=== PATIENT | male | born 1930 | race African-American/Black ===

== ENCOUNTER 2018-02-24 17:08 | Observation (INO) | payer OTHER ==
[2018-02-24 17:37] LABS: Absolute Lymphocytes (CBC) 0.7 K/uL (0.7-4.9); Absolute Monocytes 0.6 K/uL (0.1-1.3); Absolute Neutrophil 13.5 K/uL (1.8-8.0); Basophils % 0.5 % (0-1.3); Eosinophils % 0.1 % (0-4.4); Hematocrit 43.4 % (39.6-49.0); Lymphocytes % 4.9 % (15.3-44.8); MCH 32.1 pg (27.0-35.0); MCV 99.2 fL (80-100); MPV 8.4 fL (7.6-11.3); Monocytes % 4.3 % (3.3-12.3); RBC Red Blood Cell Count 4.37 M/uL (4.33-5.43)
[2018-02-24] MEDS ORDERED: ONDANSETRON 4 MG/2 ML VIAL ONE (17:45)
[2018-02-24 17:47] LABS: Glomerular Filtration Rate > 60 mL/min (>60); Potassium 5.3 mEq/L (3.6-5.0)
[2018-02-24 17:53] LABS: Albumin 3.8 g/dL (3.2-5.5); Bilirubin Direct 0.3 mg/dL (0-0.2); Bilirubin Total 1.4 mg/dL (0.3-1.2); Protein, Total 6.4 g/dL (6.0-8.3)
--- NOTE | 2018-02-24 18:15 | EDPHYS ---
Physician Documentation [facility] Name: Mahendra St Sr Age: 87 yrs Sex: Male : 1930 Arrival Date: 02/24/2018 Time: 17:13 Bed 14 Private MD: ED Physician Dionicio Brink HPI: 02/24 17:27 This 87 yrs old Black Male presents to ER via EMS with complaints of tw4 Nausea/Vomiting/Diarrhea. 17:27 The patient presents to the emergency department with nausea, that is moderate, tw4 vomiting, 7 times since the onset of symptoms, 8 times since yesterday, diarrhea, that is continuous, 5 times since yesterday. Onset: The symptoms/episode began/occurred yesterday. Possible causes: unknown. The symptoms are aggravated by nothing. The symptoms are alleviated by nothing. Associated signs and symptoms: The patient has no apparent associated signs or symptoms. Severity of symptoms: At their worst the symptoms were moderate in the emergency department the symptoms are unchanged. The patient has not experienced similar symptoms in the past. 17:27 Unable to obtain HPI due to baseline dementia. tw4 Historical: - Allergies: 17:20 NKA; iw - Home Meds: 17:20 carvedilol 6.25 mg Oral tab 1 tab 2 times per day [Active]; hydralazine 100 mg Oral tab iw 1 tab 2 times per day [Active]; metformin 750 mg Oral Tb24 1 tab BID [Active]; labetalol 100 mg Oral tab 1 tab 2 times per day [Active]; Klor-Con 10 10 mEq Oral TbER 1 tab 2 times per day [Active]; spironolactone 50 mg Oral tab 1 tab once daily [Active]; hydrochlorothiazide 25 mg Oral tab 1 tab 2 times per day [Active]; - PMHx: 17:20 Diabetes - NIDDM; Hypertension; iw - PSHx: 17:20 None; iw - Immunization history:: Adult Immunizations up to date. - Social history:: Smoking status: Patient/guardian denies using tobacco. ROS: 17:27 Constitutional: Negative for fever, chills, and weight loss, Cardiovascular: Negative tw4 for chest pain, palpitations, and edema, Abdomen/GI: Negative for abdominal pain, nausea, vomiting, diarrhea, and constipation, MS/Extremity: Negative for injury and deformity, Skin: Negative for injury, rash, and discoloration, Neuro: Negative for headache, weakness, numbness, tingling, and seizure. 17:27 Abdomen/GI: Positive for nausea, vomiting, diarrhea, Negative for abdominal pain, nausea and vomiting, nausea, vomiting, and diarrhea, black/tarry stool, rectal pain, rectal bleeding, bowel incontinence. Exam: 17:27 Constitutional: This is a well developed, well nourished patient who is awake, alert, tw4 and in no acute distress. Head/Face: Normocephalic, atraumatic. Chest/axilla: Normal chest wall appearance and motion. Nontender with no deformity. No lesions are appreciated. Cardiovascular: Regular rate and rhythm with a normal S1 and S2. No gallops, murmurs, or rubs. Normal PMI, no JVD. No pulse deficits. Respiratory: Lungs have equal breath sounds bilaterally, clear to auscultation and percussion. No rales, rhonchi or wheezes noted. No increased work of breathing, no retractions or nasal flaring. Back: No spinal tenderness. No costovertebral tenderness. Full range of motion. MS/ Extremity: Pulses equal, no cyanosis. Neurovascular intact. Full, normal range of motion. Neuro: Awake and alert, GCS 15, oriented to person, place, time, and situation. Cranial nerves II-XII grossly intact. Motor strength 5/5 in all extremities. Sensory grossly intact. Cerebellar exam normal. Normal gait. Vital Signs: 18:02 BP 188 / 94; Pulse 72; Resp 18 S; Temp 97.8(TE); Pulse Ox 94% on R/A; Weight 83.91 kg; iw Height 5 ft. 10 in. (177.80 cm); Pain 0/10; 19:26 BP 155 / 89; Pulse 82; Resp 14; Pulse Ox 93% on 2 lpm NC; Pain 0/10; ao 19:58 BP 176 / 91; Pulse 83; Resp 14; Pulse Ox 96% on 2 lpm NC; mt 20:46 BP 128 / 92; Pulse 58; Resp 16; Pulse Ox 94% on 2 lpm NC; Pain 0/10; ao 18:02 Body Mass Index 26.54 (83.91 kg, 177.80 cm) iw MDM: 17:14 Patient medically screened. tw4 17:27 Differential diagnosis: Nonspecific abd pain, gastritis, cholecystitis, pancreatitis. tw4 Data reviewed: vital signs, nurses notes. Data interpreted: Pulse oximetry: Interpretation: normal. Counseling: I had a detailed discussion with the patient and/or guardian regarding: the historical points, exam findings, and any diagnostic results supporting the discharge/admit diagnosis. 02/24 17:20 Order name: Amylase, Serum; Complete Time: 18:13 tw4 02/24 17:20 Order name: Basic Metabolic Panel; Complete Time: 18:13 tw4 02/24 17:20 Order name: CBC with Diff; Complete Time: 18:56 tw4 02/24 17:20 Order name: Creatinine for Radiology; Complete Time: 18:13 tw4 02/24 17:20 Order name: Hepatic Function; Complete Time: 18:13 tw4 02/24 17:20 Order name: Lipase; Complete Time: 18:13 tw4 02/24 17:20 Order name: Urine Microscopic Only tw4 02/24 18:21 Order name: Basic Metabolic Panel EDMS 02/24 18:21 Order name: Basic Metabolic Panel EDMS 02/24 18:21 Order name: CBC with Automated Diff EDMS 02/24 18:21 Order name: CBC with Automated Diff EDMS 02/24 18:21 Order name: Lipase EDMS 02/24 18:21 Order name: Lipase EDMS 02/24 18:49 Order name: Manual Differential; Complete Time: 18:56 EDMS 02/24 17:20 Order name: IV Saline Lock; Complete Time: 17:30 tw4 02/24 17:20 Order name: Labs collected and sent; Complete Time: 17:30 tw4 02/24 17:20 Order name: EKG; Complete Time: 17:20 tw4 02/24 17:20 Order name: Abdomen 1 View XRAY tw4 02/24 18:21 Order name: NPO EDMS 02/24 18:45 Order name: RAD; Complete Time: 18:56 EDMS 02/24 18:57 Order name: CT Abd/Pelvis - W/Contrast tw4 02/24 19:59 Order name: CT EDMS Administered Medications: 17:25 Drug: Zofran 4 mg Route: IVP; Site: right antecubital; iw 18:58 Follow up: Response: No adverse reaction iw 19:25 Drug: Phenergan 12.5 mg Route: IVP; Site: right antecubital; ao 20:21 Follow up: Response: No adverse reaction ao 20:45 Drug: hydrALAZINE 10 mg Route: IV; Rate: calculated rate; Site: right antecubital; ao 20:47 Follow up: IV Status: Infusion continued upon admission ao Disposition: 02/24/18 18:15 Hospitalization ordered by Dano Bella for Inpatient Admission. Preliminary diagnosis are Dehydration, Vomiting, Diarrhea, unspecified. - Bed requested for Telemetry/MedSurg (Inpatient). - Status is Inpatient Admission. ao - Condition is Fair. - Problem is new. - Symptoms are unchanged. UTI on Admission? No Signatures: Dispatcher [employer] Ita Humphries RN RN dw Williams, Irene, RN RN iw Ortiz, Alex, RN RN ao Wadley, Terrence, MD MD tw4 Corrections: (The following items were deleted from the chart) 20:47 17:20 Urine Dipstick-Ancillary ordered. tw4 ao
--- NOTE | 2018-02-24 18:15 | ER ---
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 Transition of care: patient was not received from another setting of care. Onset of symptoms was February 24, 2018. Care prior to arrival: Medication(s) given: zofran 4 mg, IV initiated. 20 GA, in the right antecubital area, Glucose check: 226. 17:14 Method Of Arrival: EMS: [facility] iw 17:14 Acuity: JACLYN 3 iw Historical: - Allergies: 17:20 NKA; iw - Home Meds: 17:20 carvedilol 6.25 mg Oral tab 1 tab 2 times per day [Active]; hydralazine 100 mg Oral tab iw 1 tab 2 times per day [Active]; metformin 750 mg Oral Tb24 1 tab BID [Active]; labetalol 100 mg Oral tab 1 tab 2 times per day [Active]; Klor-Con 10 10 mEq Oral TbER 1 tab 2 times per day [Active]; spironolactone 50 mg Oral tab 1 tab once daily [Active]; hydrochlorothiazide 25 mg Oral tab 1 tab 2 times per day [Active]; - PMHx: 17:20 Diabetes - NIDDM; Hypertension; iw - PSHx: 17:20 None; iw - Immunization history:: Adult Immunizations up to date. - Social history:: Smoking status: Patient/guardian denies using tobacco. Screenin:30 Abuse screen: Denies threats or abuse. Denies injuries from another. Nutritional iw screening: No deficits noted. Tuberculosis screening: No symptoms or risk factors identified. Fall Risk IV access (20 points). Assessment: 17:15 General: Appears in no apparent distress. Behavior is calm, cooperative. Pain: iw Complains of pain in back. Neuro: Level of Consciousness is awake, alert, obeys commands, Weakness in left arm(s) leg(s). Respiratory: Respiratory effort is even, unlabored. GI: Abdomen is non-distended, Bowel sounds present X 4 quads. Reports nausea, vomiting. GI: Reports diarrhea. Derm: Skin is normal. Musculoskeletal: Range of motion: limited in left elbow and left knee. 18:03 Reassessment: Patient appears in no apparent distress at this time. pt daughter states iw he has not had any more episodes of vomiting since he first arrived. 18:30 Reassessment: pt had large loose BM, pt cleaned by family, linens changed, pt then iw transported to radiology for Xray. 18:59 Reassessment: pt had another episode of vomiting, ERP notified, new orders given, pt iw will have CT. 19:26 General: Appears in no apparent distress. comfortable, Behavior is listless. Pain: ao Unable to use pain scale. FLACC scale score is 0 out of 10. Neuro: Level of Consciousness is awake, alert, obeys commands, Weakness. Cardiovascular: Capillary refill < 3 seconds Patient's skin is warm and dry. Respiratory: Airway is patent Respiratory effort is even, unlabored, Respiratory pattern is regular, symmetrical. GI: Abdomen is non-distended. : No signs and/or symptoms were reported regarding the genitourinary system. EENT: No signs and/or symptoms were reported regarding the EENT system. Derm: Skin is normal, Skin temperature is warm. Musculoskeletal: Range of motion: limited in left side. 19:29 Reassessment: Patient O2 in the 80st. Patient given O2 NC per hospital protocol. ao 20:48 Reassessment: Called report to RENU Bauer. Patient waiting to get to his room. Patient ao medicated wity Hydralazine 10mg IVP as requested by Primary nurse and ordered by DR Brink verbally to me. Vital Signs: 18:02 BP 188 / 94; Pulse 72; Resp 18 S; Temp 97.8(TE); Pulse Ox 94% on R/A; Weight 83.91 kg; iw Height 5 ft. 10 in. (177.80 cm); Pain 0/10; 19:26 BP 155 / 89; Pulse 82; Resp 14; Pulse Ox 93% on 2 lpm NC; Pain 0/10; ao 19:58 BP 176 / 91; Pulse 83; Resp 14; Pulse Ox 96% on 2 lpm NC; mt 20:46 BP 128 / 92; Pulse 58; Resp 16; Pulse Ox 94% on 2 lpm NC; Pain 0/10; ao 18:02 Body Mass Index 26.54 (83.91 kg, 177.80 cm) iw ED Course: 17:00 Arm band placed on right wrist. iw 17:13 Patient arrived in ED. iw 17:14 Dionicio Brink MD is Attending Physician. tw4 17:15 Triage completed. iw 17:15 Patient has correct armband on for positive identification. iw 17:30 Initial lab(s) drawn, by me, sent to lab. Maintain EMS IV. Dressing intact. Good blood iw return noted. Site clean \T\ dry. Gauge \T\ site: 20 RAC. 17:37 Faviola Oliveira, RN is Primary Nurse. iw 17:53 EKG done, by home service technician. reviewed by Dionicio Brink MD. at1 18:14 Dano Bella MD is Hospitalizing Provider. tw4 18:37 X-ray completed. Patient tolerated procedure well. kc2 19:00 No provider procedures requiring assistance completed. Patient admitted, IV remains in iw place. 19:09 Radiology exam delayed due to Pt getting cleaned up at this time. vm2 19:14 Warm blanket given. Pillow given. has had four diarreah stools changed bed 4 x and has mh5 vomit once . Administered Medications: 17:25 Drug: Zofran 4 mg Route: IVP; Site: right antecubital; iw 18:58 Follow up: Response: No adverse reaction iw 19:25 Drug: Phenergan 12.5 mg Route: IVP; Site: right antecubital; ao 20:21 Follow up: Response: No adverse reaction ao 20:45 Drug: hydrALAZINE 10 mg Route: IV; Rate: calculated rate; Site: right antecubital; ao 20:47 Follow up: IV Status: Infusion continued upon admission ao Outcome: 18:15 Decision to Hospitalize by Provider. tw4 20:45 Admitted to Tele accompanied by tech, room 411, Report called to RENU Bauer ao 20:45 Condition: stable 20:45 Instructed on the need for admit. 21:31 Patient left the ED. ao Signatures: Faviola Oliveira, RENU RN iw Amanda murphy, vegetable preparer EKG Tat1 Portillo Aviles Florencia Sequeira RN 2 Peri Stevens 5 Dayan Devi 2 Shawanda Corral mt, Terrence, MD MD tw4 Corrections: (The following items were deleted from the chart) 19:06 18:02 BP 188 / 94; Pulse 72bpm; Resp 18bpm; Spontaneous; Temp 97.8F Temporal; 83.91 kg; iw Height 5 ft. 10 in.; BMI: 26.5; Pain 0/10; iw
[2018-02-24] MEDS ORDERED: ACETAMINOPHEN 500 MG TAB PO PRN (18:17)
--- NOTE | 2018-02-24 18:44 | RAD REPORT ---
EXAM DESCRIPTION: RAD - Abdomen Single View - 02/24/2018 6:37 pm CLINICAL HISTORY: Nausea and vomiting. COMPARISON: None. FINDINGS: No pathologic calcifications are seen. The bones are osteopenic with degenerative changes in the lumbar spine. Several distended bowel loops are present in the left aspect of the abdomen. A paucity of bowel gas i s seen on the right. Developing bowel obstruction is a possibility, advise CT abdomen / pelvis follow up assessment.
[2018-02-24 18:49] LABS: Blood Morphology Comment NOT SEEN (NOT SEEN); Platelet Estimate ADEQ
[2018-02-24] MEDS: D5 0.45 NS 1,000 ML IV SCH ×2 (19:00→22:13)
[2018-02-24] MEDS ORDERED: PROMETHAZINE 25 MG/ML VIAL ONE (19:35)
--- NOTE | 2018-02-24 19:58 | RAD REPORT ---
EXAM DESCRIPTION: CTAbdomen Pelvis W Contrast - 02/24/2018 7:49 pm CLINICAL HISTORY: Abdominal pain. Nausea and vomiting. COMPARISON: Plain radiograph 02/24/2018 TECHNIQUE: Biphasic CT imaging of the abdomen and pelvis was performed with 100 ml non-ionic IV cont rast. All CT scans are performed using dose optimization technique as appropriate and may include automated exposure control or mA/KV adjustment according to patient size. FINDINGS: Mild linear opacities are present in both lung bases, greater on the right. The liver contains several low-density lesions, likely benign cysts. No intrahepatic biliary dilatati on. The spleen, pancreas and adrenal glands are normal. Multiple bilateral renal cysts are present, l argest inferiorly emanating from the right kidney measuring 10 cm. Significantly thickened colon wall is seen predominately in the left aspect of the abdomen. The stoma ch is distended. No free air, free fluid or abscess. No secondary findings of appendicitis. No evide nce of significant lymphadenopathy. Advanced lumbar degenerative changes. Lipoma is suspected in the left forearm as well as left buttock region. IMPRESSION: Moderate colonic wall thickening is present along the left aspect of abdomen, likely ind icating moderate nonspecific colitis. No pneumatosis is seen.
[2018-02-24] MEDS ORDERED: HYDRALAZINE HCL 20 MG/ML VIAL ONE (20:58)
[2018-02-25] MEDS: D5 0.45 NS 1,000 ML IV SCH ×2 (03:00→05:29)
[2018-02-25 03:02] VITALS: BMI 26.5
[2018-02-25 05:03] LABS: Absolute Lymphocytes (CBC) 0.7 K/uL (0.7-4.9); Absolute Monocytes 1.8 K/uL (0.1-1.3); Absolute Neutrophil 22.5 K/uL (1.8-8.0); Basophils % 0.4 % (0-1.3); Hematocrit 44.5 % (39.6-49.0); Lymphocytes % 2.8 % (15.3-44.8); MCH 32.5 pg (27.0-35.0); MCV 98.8 fL (80-100); MPV 8.9 fL (7.6-11.3); Monocytes % 7.3 % (3.3-12.3); RBC Red Blood Cell Count 4.51 M/uL (4.33-5.43)
[2018-02-25 05:05] LABS: Potassium 4.7 mEq/L (3.6-5.0)
[2018-02-25 05:21] LABS: Blood Morphology Comment NOT SEEN (NOT SEEN); Platelet Estimate ADEQ
[2018-02-25] MEDS: POTASSIUM CL SA 10 MEQ TAB PO SCH ×2 (09:00→20:09)
[2018-02-25] MEDS ORDERED: NA CHLORIDE 0.9% 1,000 ML IV SCH (09:00)
--- NOTE | 2018-02-25 10:18 | P.HP ---
Certification for Inpatient Patient admitted to: Inpatient With expected LOS: <2 Midnights Patient will require the following post-hospital care: None Practitioner: I am a practitioner with admitting privileges, knowledge of patient current condition, hospital course, and medical plan of care. 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 Past medical history of stroke with residual effects. Well controlled diabetes and HTN. 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 The patient presents with one day of nausea, vomiting and diarrhea. He is not sure about the events. Family brought him to the er last night. He had 5 episodes of vomiting and could not keep anything down. His creatine is a bit elevated above his baseline of 1.26(this past Nov). He does not have any fever or chills, no chest pain or sob. Is not complaining of nausea this morning. Allergies No Known Drug Allergies Allergy (Unknown, Verified 08/06/15 10:10) Unknown No Known Allergies Allergy (Uncoded 02/24/18 21:37) Unknown Home Medications: Hydrochlorothiazide [Hydrodiuril] 25 mg PO BID 07/20/15 RX: Baclofen [Lioresal*] 10 mg PO DAILY #30 tab 08/11/15 RX: Hydralazine [Apresoline*] 100 mg PO BID #60 tab 08/11/15 RX: Lisinopril [Prinivil*] 40 mg PO NOON #30 tab 08/11/15 RX: Metformin ER [Glucophage ER*] 750 mg PO BIDWM #60 tab.sa 08/11/15 RX: Potassium Oral Tab [Klor-Con 10 mEq Tab*] 10 meq PO BID #60 tab 08/11/15 RX: Spironolactone [Aldactone*] 50 mg PO DAILY #30 tab 08/11/15 Aspirin [Adolfo Chewable] 81 mg PO DAILY 02/25/18 Clonidine HCl [Catapres] 0.1 mg PO DAILY 02/25/18 RX: Carvedilol [Coreg*] 6.25 mg PO BID 02/25/18 RX: Labetalol HCl [Trandate*] 100 mg PO BID 02/25/18 - Past Medical/Surgical History Has patient received pneumonia vaccine in the past: No Diabetic: Yes -: htn -: hx of dvt -: DM - NIDDM -: Dementia - Family History Father -: Hypertension Brother -: Hypertension, Diabetes - Social History Smoking Status: Never smoker Alcohol use: No CD- Drugs: No Caffeine use: Yes Place of Residence: Home Review of Systems 10-point ROS is otherwise unremarkable Gastrointestinal: Nausea, Vomiting, Diarrhea Physical Examination - Vital Signs Temperature: 97.6 F Blood Pressure: 136/75 Pulse: 82 Respirations: 18 Pulse Ox (%): 100 - Physical Exam General: Alert, In no apparent distress HEENT: Atraumatic, PERRLA, Other (dry mucous membranes), EOMI, Sclerae nonicteric Neck: Supple, 2+ carotid pulse no bruit, No LAD, Without JVD or thyroid abnormality Respiratory: Clear to auscultation bilaterally, Normal air movement Cardiovascular: Regular rate/rhythm, Normal S1 S2 Gastrointestinal: Normal bowel sounds, No tenderness Musculoskeletal: No tenderness Integumentary: No rashes Neurological: Normal gait, Normal speech, Normal strength at 5/5 x4 extr, Normal tone, Normal affect Lymphatics: No axilla or inguinal lymphadenopathy - Studies Laboratory Data (last 24 hrs) 02/24/18 17:25: Creatinine 1.31 H 02/24/18 17:25: WBC 15.0 H, Hgb 14.0, Hct 43.4, Plt Count 191 02/24/18 17:25: Sodium 132 L, Potassium 5.3 H, BUN 16, Creatinine 1.32 H, Glucose 224 H, Total Bilirubin 1.4 H, AST 22, ALT 16, Alkaline Phosphatase 77, Amylase 94, Lipase 19 L Assessment and Plan - Problems (Diagnosis) (1) Gastroenteritis Current Visit: Yes Status: Acute Plan: Could not get a history of sick contacts. Slight thickening of the colon on CT. Will start him on flagyl. Check stool studies. Will also continue IV fluids. Will start him on clear liquids and advance his diet as needed. (2) Acute on chronic renal failure Current Visit: Yes Status: Acute Plan: Most likely prerenal. Will continue with hydrations. Hold his gurpreet and diuretics for know. will restart as his kidney function improves back to the baseline. Qualifiers: Acute renal failure type: unspecified Chronic kidney disease stage: stage 2 (mild) Qualified Code(s): N17.9 - Acute kidney failure, unspecified; N18.2 - Chronic kidney disease, stage 2 (mild); N18.2 - Chronic kidney disease, stage 2 (mild) (3) HTN (hypertension) Current Visit: Yes Status: Acute Plan: Restart his coreg. Will restart the gurpreet and diuretics as he improves. Qualifiers: Hypertension type: essential hypertension Qualified Code(s): I10 - Essential (primary) hypertension (4) Diabetes mellitus Onset Date: 07/21/15 Current Visit: No Status: Acute Plan: Last a1c in November was 5.1 Will hold metformin. 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
[2018-02-25] MEDS ORDERED: D50W 25 GM/50 ML SYRINGE IV PRN (10:28)
[2018-02-25] MEDS ORDERED: GLUCAGON 1 MG/VIAL IM PRN (10:28)
[2018-02-25] MEDS: cloNIDine HCl 0.1 MG TAB PO SCH (10:30)
[2018-02-25] MEDS: ASPIRIN 81 MG CHEWABLE TABLET PO SCH (10:30)
[2018-02-25] MEDS: HYDRALAZINE HCL 25 MG TABLET PO SCH ×3 (10:30→20:26)
[2018-02-25] MEDS: CARVEDILOL 6.25 MG TAB PO SCH ×3 (10:31→20:26)
[2018-02-25] MEDS: METRONIDAZOLE 500mg IVPB 500 MG/100 ML BAG IV SCH ×2 (10:31→16:49)
[2018-02-25] MEDS: BACLOFEN 10 MG TAB PO SCH (10:31)
[2018-02-25] MEDS: hydroCHLOROthiazide 25 MG TAB PO SCH ×2 (10:31→20:09)
[2018-02-25] MEDS: NA CHLORIDE 0.9% 1,000 ML IV SCH ×2 (10:32→18:28)
[2018-02-25] MEDS: INSULIN -REGULAR HUMAN 50 UNIT/0.5 ML ML SQ SCH ×3 (11:30→21:00)
[2018-02-25] MEDS ORDERED: ENOXAPARIN 40 MG/0.4 ML SQ SCH (17:00)
[2018-02-26] MEDS: METRONIDAZOLE 500mg IVPB 500 MG/100 ML BAG IV SCH ×2 (00:12→10:02)
[2018-02-26] MEDS: NA CHLORIDE 0.9% 1,000 ML IV SCH (05:12)
[2018-02-26] MEDS: CARVEDILOL 6.25 MG TAB PO SCH (06:25)
[2018-02-26] MEDS ORDERED: PANTOPRAZOLE 40MG TABLET PO SCH (06:30)
[2018-02-26 06:54] LABS: Absolute Monocytes 1.2 K/uL (0.1-1.3); Absolute Neutrophil 9.3 K/uL (1.8-8.0); Basophils % 0.5 % (0-1.3); Eosinophils % 0.8 % (0-4.4); Hematocrit 41.3 % (39.6-49.0); Lymphocytes % 8.3 % (15.3-44.8); MCH 32.6 pg (27.0-35.0); MCV 97.8 fL (80-100); MPV 8.3 fL (7.6-11.3); Monocytes % 10.5 % (3.3-12.3); RBC Red Blood Cell Count 4.22 M/uL (4.33-5.43)
[2018-02-26 07:23] LABS: Albumin 3.4 g/dL (3.2-5.5); Bilirubin Total 0.9 mg/dL (0.3-1.2); Potassium 4.4 mEq/L (3.6-5.0); Protein, Total 5.6 g/dL (6.0-8.3)
[2018-02-26] MEDS: INSULIN -REGULAR HUMAN 50 UNIT/0.5 ML ML SQ SCH ×2 (07:30→11:30)
--- NOTE | 2018-02-26 07:40 | EKG ---
Test Date: 2018-02-24 Test Time: 17:43:55 Vocational Rehabilitation Administrator: GUNNER MEASUREMENT RESULTS: Intervals: Rate: 72 ND: 214 QRSD: 140 QT: 434 QTc: 475 [place]: P: 115 ND: 214 QRS: 8 T: 27 INTERPRETIVE STATEMENTS: Sinus rhythm with 1st degree AV block Right bundle branch block Abnormal ECG Compared to ECG 07/14/2015 11:01:26 Left-axis deviation no longer present Electronically Signed On 02-26-18 07:35:23 CDT by Maynor Smiley
--- NOTE | 2018-02-26 08:49 | P.PN ---
Subjective Date of Service: 02/26/18 Primary Care Provider: Jena Chief Complaint: Gastro enteritis with nausea and vomitting Subjective: Improving (Tolerating full liquid diet. Had a loose stool yesterday ) Review of Systems 10-point ROS is otherwise unremarkable General: Weakness Physical Examination - Vital Signs Temperature: 96.9 F Blood Pressure: 181/91 Pulse: 65 Respirations: 15 Pulse Ox (%): 97 - Physical Exam General: Alert, In no apparent distress HEENT: Atraumatic, PERRLA, EOMI Neck: Supple, JVD not distended Respiratory: Clear to auscultation bilaterally, Normal air movement Cardiovascular: Regular rate/rhythm, Normal S1 S2 Gastrointestinal: Normal bowel sounds, No tenderness Musculoskeletal: No tenderness Integumentary: No rashes Neurological: Normal speech, Normal tone, Normal affect Lymphatics: No axilla or inguinal lymphadenopathy Assessment & Plan - Problems (Diagnosis) (1) Gastroenteritis Current Visit: Yes Status: Acute Plan: Patient is improving. Will continue advancing his diet. Will have pt ambulate the patient (2) Acute on chronic renal failure Current Visit: Yes Status: Acute Plan: Sandra is back at his baseline. Can d/c his fluids, as he is eating Qualifiers: Acute renal failure type: unspecified Chronic kidney disease stage: stage 2 (mild) Qualified Code(s): N17.9 - Acute kidney failure, unspecified; N18.2 - Chronic kidney disease, stage 2 (mild); N18.2 - Chronic kidney disease, stage 2 (mild) (3) HTN (hypertension) Current Visit: Yes Status: Acute Plan: Restart his coreg. Will restart the gurpreet and diuretics as he improves. Qualifiers: Hypertension type: essential hypertension Qualified Code(s): I10 - Essential (primary) hypertension (4) Diabetes mellitus Onset Date: 07/21/15 Current Visit: No Status: Acute Plan: Last a1c in November was 5.1 Will hold metformin. Start sliding scale insulin Qualifiers: Diabetes mellitus type: type 2 Diabetes mellitus fueler insulin use: without longterm use Diabetes mellitus complication status: without complication Qualified Code(s): E11.9 - Type 2 diabetes mellitus without complications Discharge Plan: Home Plan to discharge in: 24 Hours - Code Status/Comfort Care Code Status Assessed: No Code Status: Full Code Physician Review: Patient Assessed, Agree with Above Assessment and Plan Critical Care: No Time Spent Managing Pts Care (In Minutes): 25
[2018-02-26] MEDS ORDERED: hydroCHLOROthiazide 25 MG TAB PO SCH (09:00)
[2018-02-26] MEDS: BACLOFEN 10 MG TAB PO SCH (09:58)
[2018-02-26] MEDS: POTASSIUM CL SA 10 MEQ TAB PO SCH (09:58)
[2018-02-26] MEDS: cloNIDine HCl 0.1 MG TAB PO SCH (09:58)
[2018-02-26] MEDS: HYDRALAZINE HCL 25 MG TABLET PO SCH (09:58)
[2018-02-26] MEDS: ASPIRIN 81 MG CHEWABLE TABLET PO SCH (09:58)
[2018-02-26 10:40] VITALS: O2SAT 97
[2018-02-26 13:40] VITALS: BP 128/69; TEMP 97
--- NOTE | 2018-02-26 15:26 | P.DS ---
Admission Date: 02/24/18 Discharge Date: 02/26/18 Primary Care Provider: Jena Disposition: ROUTINE DISCHARGE Discharge Condition: GOOD Reason for Admission: Gastro enteritis with nausea and vomitting - Problems (1) Gastroenteritis Current Visit: Yes Status: Acute (2) Acute on chronic renal failure Current Visit: Yes Status: Acute Qualifiers: Acute renal failure type: unspecified Chronic kidney disease stage: stage 2 (mild) Qualified Code(s): N17.9 - Acute kidney failure, unspecified; N18.2 - Chronic kidney disease, stage 2 (mild); N18.2 - Chronic kidney disease, stage 2 (mild) (3) HTN (hypertension) Current Visit: Yes Status: Acute Qualifiers: Hypertension type: essential hypertension Qualified Code(s): I10 - Essential (primary) hypertension (4) Diabetes mellitus Onset Date: 07/21/15 Current Visit: No Status: Acute Qualifiers: Diabetes mellitus type: type 2 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 Past medical history of stroke with residual effects. Well controlled diabetes and HTN. 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 The patient presents with one day of nausea, vomiting and diarrhea. He is not sure about the events. Family brought him to the er last night. He had 5 episodes of vomiting and could not keep anything down. His creatine is a bit elevated above his baseline of 1.26(this past Nov). He does not have any fever or chills, no chest pain or sob. Is not complaining of nausea this morning. Hospital Course: Patient admitted with uncontrolled nausea and vomiting. He was started on fluids and iv flagyl. He improved steadily. Is able to tolerate mechanical soft diet. Kidney function improved to baseline. He had a desaturation while ambulating. Will order home o2 and have him follow up with Dr. Lloyd. Thank you for allowing us to take part in his care. Vital Signs/Physical Exam: Temp Pulse Resp BP Pulse Ox 97.0 F 73 16 128/69 91 02/26/18 12:00 02/26/18 12:00 02/26/18 12:00 02/26/18 12:02/26/18 12:00 General: Alert, In no apparent distress HEENT: Atraumatic, PERRLA, EOMI Neck: Supple, JVD not distended Respiratory: Clear to auscultation bilaterally, Normal air movement Cardiovascular: Regular rate/rhythm, Normal S1 S2 Gastrointestinal: Normal bowel sounds, No tenderness Musculoskeletal: No tenderness Integumentary: No rashes Neurological: Normal speech, Normal tone, Normal affect Lymphatics: No axilla or inguinal lymphadenopathy Laboratory Data at Discharge: WBC 11.6 K/uL (4.3-10.9) H D 02/26/18 06:29 Hgb 13.8 g/dL (13.6-17.9) 02/26/18 06:29 Hct 41.3 % (39.6-49.0) 02/26/18 06:29 Plt Count 161 K/uL (152-406) 02/26/18 06:29 Sodium 133 mEq/L (135-145) L 02/26/18 06:29 Potassium 4.4 mEq/L (3.6-5.0) 02/26/18 06:29 BUN 18 mg/dL (6-20) 02/26/18 06:29 Creatinine 1.29 mg/dL (0.61-1.24) H 02/26/18 06:29 Glucose 96 mg/dL (65-120) 02/26/18 06:29 Total Bilirubin 0.9 mg/dL (0.3-1.2) 02/26/18 06:29 AST 23 IU/L (10-42) 02/26/18 06:29 ALT 15 IU/L (10-60) 02/26/18 06:29 Alkaline Phosphatase 58 IU/L (42-121) 02/26/18 06:29 Amylase 94 U/L (28-100) 02/24/18 17:25 Lipase 16 U/L (22-51) L 02/25/18 04:23 Home Medications: Hydrochlorothiazide [Hydrodiuril] 25 mg PO BID 07/20/15 Baclofen [Lioresal*] 10 mg PO DAILY #30 tab 08/11/15 Hydralazine [Apresoline*] 100 mg PO BID #60 tab 08/11/15 Lisinopril [Prinivil*] 40 mg PO NOON #30 tab 08/11/15 Metformin ER [Glucophage ER*] 750 mg PO BIDWM #60 tab.sa 08/11/15 Potassium Oral Tab [Klor-Con 10 mEq Tab*] 10 meq PO BID #60 tab 08/11/15 Spironolactone [Aldactone*] 50 mg PO DAILY #30 tab 08/11/15 Aspirin [Adolfo Chewable] 81 mg PO DAILY 02/25/18 Carvedilol [Coreg*] 6.25 mg PO BID 02/25/18 Clonidine HCl [Catapres] 0.1 mg PO DAILY 02/25/18 Labetalol HCl [Trandate*] 100 mg PO BID 02/25/18 Lactobacillus Acidophilus [Probiotic] 1 each PO DAILY WITH BREAKFAST #30 capsule 02/26/18 Metronidazole [Flagyl] 500 mg PO Q8H 5 Days #15 tablet 02/26/18 New Medications: Lactobacillus Acidophilus [Probiotic] 1 each PO DAILY WITH BREAKFAST #30 capsule Metronidazole [Flagyl] 500 mg PO Q8H 5 Days #15 tablet Diet: Regular Activity: Ad michaela Physician Review: Patient Assessed, Agree with Above Assessment and Plan Time spent managing pt's care (in minutes): 50
== END 2018-02-26 16:14 | disposition home or self-care (01) ==
LOC: ER 17:08 → ERHOLD 18:16 → INTOOBSV 18:16 → 4TH 19:42
PROVIDERS: ADMIT Internal Medicine; ATTEND Internal Medicine
DX: K52.9 Noninfective gastroenteritis and colitis, unspecified (principal); I12.9 Hypertensive chronic kidney disease with stage 1 through stage 4 chronic kidney disease, or unspecified chronic kidney disease; E11.22 Type 2 diabetes mellitus with diabetic chronic kidney disease; N18.2 Chronic kidney disease, stage 2 (mild); N17.9 Acute kidney failure, unspecified; I69.30 Unspecified sequelae of cerebral infarction; E02 Subclinical iodine-deficiency hypothyroidism
CPT/HCPCS: 36415 ×2; 74018; 74177; 80048 ×2; 80053; 80076; 82150; 82962 ×6; 83690 ×2; 85025 ×3; 93005; 96374; 96375; 97163; 97530; 99285; G0378 ×2; J0360; J1650; J2405; J2550; J7030 ×3

== ENCOUNTER 2019-08-28 09:18 | Inpatient (IN) | payer OTHER ==
[2019-08-28] MEDS ORDERED: MORPHINE 2 MG/ML SYR ONE (10:57)
[2019-08-28] MEDS ORDERED: NA CHLORIDE 0.9% 500 ML ONE (10:57)
[2019-08-28 11:27] LABS: Absolute Lymphocytes (CBC) 0.9 K/uL (0.7-4.9); Basophils % 0.2 % (0-1.3); Hematocrit 38.7 % (39.6-49.0); Lymphocytes % 5.2 % (15.3-44.8); MPV 7.2 fL (7.6-11.3); RBC Red Blood Cell Count 4.04 M/uL (4.33-5.43)
[2019-08-28 11:51] LABS: Albumin 2.6 g/dL (3.4-5.0); Bilirubin Direct 0.1 mg/dL (0-0.2); Bilirubin Total 0.4 mg/dL (0.2-1.0); Potassium 4.7 mmol/L (3.5-5.1); Protein, Total 6.4 g/dL (6.4-8.2)
[2019-08-28 13:17] LABS: Urine Blood NEGATIVE (NEG); Urine Glucose NEGATIVE (NEG); Urine Protein NEGATIVE (NEG); Urine Specific Gravity 1.015 (1.005-1.030); Urine pH 5.5 (5.0-7.0)
--- NOTE | 2019-08-28 14:51 | EDPHYS ---
Physician Documentation [facility] Name: Mahendra St Sr Age: 88 yrs Sex: Male : 1930 Arrival Date: 08/28/2019 Time: 09:19 Bed 30 Private MD: Dano Bella ED Physician Delroy Thomas HPI: 08/28 10:37 This 88 yrs old Black Male presents to ER via Wheelchair with complaints of Abdominal jmm Pain. 10:37 The patient presents with abdominal pain in the right upper quadrant, right lower jmm quadrant. Onset: The symptoms/episode began/occurred gradually, 2 day(s) ago. The symptoms do not radiate. Associated signs and symptoms: Pertinent negatives: diarrhea, vomiting. This is an 88 year old male with a history of DM, HTN, CVA that presents to the ED with complaints of right sided abdominal pain beginning 2 days ago. No vomiting or diarrhea. Pain worsening today. . Historical: - Allergies: 09:49 NKA; ss - Home Meds: 09:49 carvedilol 6.25 mg Oral tab 1 tab 2 times per day [Active]; hydralazine 100 mg Oral tab ss 1 tab 2 times per day [Active]; hydrochlorothiazide 25 mg Oral tab 1 tab 2 times per day [Active]; Klor-Con 10 10 mEq Oral TbER 1 tab 2 times per day [Active]; spironolactone 50 mg Oral tab 1 tab once daily [Active]; lisinopril 40 mg Oral tab 1 tab once daily [Active]; labetalol 100 mg Oral tab 1 tab 2 times per day [Active]; - PMHx: 09:49 Diabetes - NIDDM; Hypertension; DVT; CVA; L sided paralysis post CVA; ss - PSHx: 09:49 None; ss - Immunization history:: Adult Immunizations unknown. - Social history:: Smoking status: Patient/guardian denies using tobacco. - Ebola Screening: : Patient denies exposure to infectious person Patient denies travel to an Ebola-affected area in the 21 days before illness onset. ROS: 10:37 Constitutional: Negative for fever, chills, and weight loss, Cardiovascular: Negative jmm for chest pain, palpitations, and edema, Respiratory: Negative for shortness of breath, cough, wheezing, and pleuritic chest pain. 10:37 Back: Negative for injury and pain, MS/Extremity: Negative for injury and deformity, Skin: Negative for injury, rash, and discoloration, Neuro: Negative for headache, weakness, numbness, tingling, and seizure. 10:37 Abdomen/GI: Positive for abdominal pain. 10:37 All other systems are negative. Exam: 10:37 Constitutional: This is a well developed, well nourished patient who is awake, alert, jmm and in no acute distress. Head/Face: atraumatic. Eyes: EOMI, no conjunctival erythema appreciated Neck: Trachea midline, Supple Chest/axilla: Normal chest wall appearance and motion. Cardiovascular: Regular rate and rhythm. No edema appreciated Respiratory: Normal respirations, no respiratory distress appreciated 10:37 Abdomen/GI: Inspection: abdomen appears normal, Bowel sounds: normal, Palpation: soft, moderate abdominal tenderness, in the right upper quadrant and right lower quadrant. 10:37 Back: ROM is normal. 10:37 Musculoskeletal/extremity: ROM: intact in all extremities. 10:37 Skin: Appearance: Color: normal in color. 10:37 Neuro: Orientation: is normal, Mentation: is normal, Memory: is normal. 10:37 Psych: Behavior/mood is pleasant, cooperative. Vital Signs: 09:49 BP 107 / 78; Pulse 95; Resp 16; Temp 97.9(TE); Pulse Ox 96% on R/A; Weight 90.26 kg; ss Height 5 ft. 11 in. (180.34 cm); Pain 8/10; 11:56 BP 131 / 92; Pulse 92; Resp 20; Pulse Ox 100% on R/A; aj1 13:00 BP 126 / 85; Pulse 95; Resp 18; Pulse Ox 97% on R/A; aj1 14:00 BP 136 / 90; Pulse 92; Resp 20; Pulse Ox 96% on R/A; aj1 15:00 BP 131 / 91; Pulse 88; Resp 18; Pulse Ox 97% on R/A; aj1 17:48 BP 139 / 97; Pulse 87; Resp 16; Temp 97.7(O); Pulse Ox 98% ; lt1 09:49 Body Mass Index 27.75 (90.26 kg, 180.34 cm) MDM: 10:27 Patient medically screened. [facility] 14:49 Data reviewed: vital signs, nurses notes. Counseling: I had a detailed discussion with [facility] the patient and/or guardian regarding: the historical points, exam findings, and any diagnostic results supporting the discharge/admit diagnosis, lab results, radiology results, the need for further work-up and treatment in the hospital. ED course: I discussed the patient with Dr. Sargent whom accepted admission. . 08/28 10:37 Order name: Basic Metabolic Panel; Complete Time: 11:57 [facility] 08/28 10:37 Order name: CBC with Diff; Complete Time: 11:49 [facility] 08/28 10:37 Order name: Creatinine for Radiology; Complete Time: 11:49 [facility] 08/28 10:37 Order name: Hepatic Function; Complete Time: 11:57 [facility] 08/28 10:37 Order name: Lipase; Complete Time: 11:57 [facility] 08/28 10:37 Order name: Lactate; Complete Time: 11:57 [facility] 08/28 10:37 Order name: IV Saline Lock; Complete Time: 11:16 [facility] 08/28 10:37 Order name: CT Abd/Pelvis - IV Contrast Only [facility] 08/28 13:02 Order name: Urine Culture [facility] 08/28 13:10 Order name: Urine Dipstick--Ancillary (enter results); Complete Time: 13:17 [facility] 08/28 10:37 Order name: Labs collected and sent; Complete Time: 11:16 [facility] 08/28 10:37 Order name: Urine Dipstick-Ancillary (obtain specimen); Complete Time: 13:20 [facility] Administered Medications: 11:15 Drug: NS 0.9% 500 ml Route: IV; Rate: bolus; Site: right antecubital; aj1 12:30 Follow up: IV Status: Completed infusion; IV Intake: 500ml aj1 11:15 Drug: morphine 2 mg Route: IVP; Site: right antecubital; aj1 12:30 Follow up: Response: No adverse reaction; RASS: Alert and Calm (0) aj1 15:00 Drug: Flagyl 500 mg Volume: 100 ml; Route: IVPB; Rate: 200 ml/hr; Infused Over: 30 aj1 mins; Site: right antecubital; 16:24 Follow up: IV Status: Completed infusion rv 16:24 Drug: Cipro 400 mg Volume: 200 ml; Route: IVPB; Infused Over: 60 mins; Site: right rv antecubital; 18:58 Follow up: IV Status: Completed infusion; IV Intake: 200ml aj1 Disposition: 08/28/19 14:51 Hospitalization ordered by Nikki Sargent for Observation. Preliminary diagnosis is Colitis. - Bed requested for Telemetry/MedSurg (observation). - Status is Observation. aj1 - Condition is Stable. - Problem is new. - Symptoms have improved. UTI on Admission? No Addendum: 08/30/2019 07:54 Co-signature as Attending Physician, Delroy Thomas MD I agree with the assessment and c mccabe plan of care. Signatures: Dispatcher [employer] EDLiberty Martinez RN RN aj1 Delroy Thomas MD MD cha Mickail, Joel, PA PA jmm Calderon, Audri, RN RN aa5 Delilah Irizarry RN RN ss Chencho Weber RN RN rv Corrections: (The following items were deleted from the chart) 08/28 17:43 14:51 Hospitalization Ordered by Nikki Sargent MD for Observation. Preliminary diagnosis aa5 is Colitis. Bed requested for Telemetry/MedSurg (observation). Status is Observation. Condition is Stable. Problem is new. Symptoms have improved. UTI on Admission? No. jmm 19:02 17:43 08/28/2019 14:51 Hospitalization Ordered by Nikki Sargent MD for Observation. aj1 Preliminary diagnosis is Colitis. Bed requested for Telemetry/MedSurg (observation). Status is Observation. Condition is Stable. Problem is new. Symptoms have improved. UTI on Admission? No. aa5
--- NOTE | 2019-08-28 14:51 | ER ---
Nurse's Notes [facility] Name: Mahendra St Sr Age: 88 yrs Sex: Male : 1930 Arrival Date: 08/28/2019 Time: 09:19 Bed 30 Private MD: Dano Bella Diagnosis: Colitis Presentation: 08/28 09:46 Presenting complaint: Intermittent abd pain that began >1 week ago. Denies N/V/D. ss Family gave pepto which patient reports that helped his discomfort temporarily. Transition of care: patient was not received from another setting of care. Onset of symptoms is unknown. Risk Assessment: Do you want to hurt yourself or someone else? Patient reports no desire to harm self or others. Initial Sepsis Screen: Does the patient meet any 2 criteria? No. Patient's initial sepsis screen is negative. Does the patient have a suspected source of infection? No. Patient's initial sepsis screen is negative. Care prior to arrival: None. 09:46 Acuity: JACLYN 3 ss 09:46 Method Of Arrival: Wheelchair ss Historical: - Allergies: 09:49 NKA; ss - Home Meds: 09:49 carvedilol 6.25 mg Oral tab 1 tab 2 times per day [Active]; hydralazine 100 mg Oral tab ss 1 tab 2 times per day [Active]; hydrochlorothiazide 25 mg Oral tab 1 tab 2 times per day [Active]; Klor-Con 10 10 mEq Oral TbER 1 tab 2 times per day [Active]; spironolactone 50 mg Oral tab 1 tab once daily [Active]; lisinopril 40 mg Oral tab 1 tab once daily [Active]; labetalol 100 mg Oral tab 1 tab 2 times per day [Active]; - PMHx: 09:49 Diabetes - NIDDM; Hypertension; DVT; CVA; L sided paralysis post CVA; ss - PSHx: 09:49 None; ss - Immunization history:: Adult Immunizations unknown. - Social history:: Smoking status: Patient/guardian denies using tobacco. - Ebola Screening: : Patient denies exposure to infectious person Patient denies travel to an Ebola-affected area in the 21 days before illness onset. Screenin:41 Abuse screen: Denies threats or abuse. Denies injuries from another. Nutritional aj1 screening: No deficits noted. Tuberculosis screening: No symptoms or risk factors identified. 18:38 Fall Risk No fall in past 12 months (0 pts). Secondary diagnosis (15 points) impaired aj1 mobility, Left sided paralysis. IV access (20 points). Ambulatory Aid- None/Bed Rest/Nurse Assist (0 pts). Gait- Normal/Bed Rest/Wheelchair (0 pts) Mental Status- Oriented to own ability (0 pts). Total Vera Fall Scale indicates Low Risk Score (25-44 pts). Family Present and informed to notify staff if they need to leave bedside As available Patient and Family Educated on Fall Prevention Program and strategies. Assessment: 10:41 General: Appears in no apparent distress. uncomfortable, Behavior is calm, cooperative, aj1 appropriate for age. Pain: Complains of pain in right upper quadrant and right lower quadrant. Neuro: Level of Consciousness is awake, alert, obeys commands, Oriented to person, place, time, situation. Cardiovascular: Patient's skin is warm and dry. Respiratory: Airway is patent Respiratory effort is even, unlabored, Respiratory pattern is regular, symmetrical. GI: Abdomen is round Bowel sounds present X 4 quads. Abd is soft X 4 quads Abdomen is tender to palpation in right upper quadrant and right lower quadrant. : No signs and/or symptoms were reported regarding the genitourinary system. EENT: No signs and/or symptoms were reported regarding the EENT system. Derm: No signs and/or symptoms reported regarding the dermatologic system. Skin is pink, warm \T\ dry. normal. Musculoskeletal: No signs and/or symptoms reported regarding the musculoskeletal system. Circulation, motion, and sensation intact. 11:56 Reassessment: Patient appears in no apparent distress at this time. No changes from aj1 previously documented assessment. Patient and/or family updated on plan of care and expected duration. Pain level reassessed. Patient is alert, oriented x 3, equal unlabored respirations, skin warm/dry/pink. 13:00 Reassessment: Patient appears in no apparent distress at this time. No changes from aj1 previously documented assessment. Patient and/or family updated on plan of care and expected duration. Pain level reassessed. Patient is alert, oriented x 3, equal unlabored respirations, skin warm/dry/pink. 14:00 Reassessment: Patient appears in no apparent distress at this time. No changes from aj1 previously documented assessment. Patient and/or family updated on plan of care and expected duration. Pain level reassessed. Patient is alert, oriented x 3, equal unlabored respirations, skin warm/dry/pink. 15:00 Reassessment: Patient and/or family updated on plan of care and expected duration. Pain aj1 level reassessed. General: Appears in no apparent distress. comfortable, Behavior is calm, cooperative, appropriate for age. Neuro: Level of Consciousness is awake, alert, obeys commands. Cardiovascular: Patient's skin is warm and dry. Respiratory: Airway is patent Respiratory effort is even, unlabored, Respiratory pattern is regular, symmetrical. GI: Abdomen is round non-distended. Derm: Skin is pink, warm \T\ dry. normal. Musculoskeletal: Circulation, motion, and sensation intact. 18:00 Reassessment: Patient appears in no apparent distress at this time. No changes from aj1 previously documented assessment. Patient and/or family updated on plan of care and expected duration. Pain level reassessed. Patient is alert, oriented x 3, equal unlabored respirations, skin warm/dry/pink. Vital Signs: 09:49 BP 107 / 78; Pulse 95; Resp 16; Temp 97.9(TE); Pulse Ox 96% on R/A; Weight 90.26 kg; ss Height 5 ft. 11 in. (180.34 cm); Pain 8/10; 11:56 BP 131 / 92; Pulse 92; Resp 20; Pulse Ox 100% on R/A; aj1 13:00 BP 126 / 85; Pulse 95; Resp 18; Pulse Ox 97% on R/A; aj1 14:00 BP 136 / 90; Pulse 92; Resp 20; Pulse Ox 96% on R/A; aj1 15:00 BP 131 / 91; Pulse 88; Resp 18; Pulse Ox 97% on R/A; aj1 17:48 BP 139 / 97; Pulse 87; Resp 16; Temp 97.7(O); Pulse Ox 98% ; lt1 09:49 Body Mass Index 27.75 (90.26 kg, 180.34 cm) ED Course: 09:19 Patient arrived in ED. as 09:19 Dano Bella MD is Private Physician. as 09:47 Triage completed. ss 09:49 Arm band placed on right wrist. ss 10:26 Hernando Ponce PA is PHCP. jmm 10:26 Delroy Thomas MD is Attending Physician. jmm 10:40 Liberty Singh, RENU is Primary Nurse. aj1 10:41 Patient has correct armband on for positive identification. Bed in low position. Call aj1 light in reach. Adult w/ patient. 10:41 No provider procedures requiring assistance completed. aj1 11:16 Inserted saline lock: 20 gauge in right antecubital area, using aseptic technique. aj1 Blood collected. 12:16 CT Abd/Pelvis - IV Contrast Only In Process Unspecified. EDMS 13:20 Urine Culture Sent. lt1 14:50 Nikki Sargnet MD is Hospitalizing Provider. [facility] 18:30 Report given to RENU Schmid on 4th floor. aj1 18:39 Patient admitted, IV remains in place. aj1 Administered Medications: 11:15 Drug: NS 0.9% 500 ml Route: IV; Rate: bolus; Site: right antecubital; aj1 12:30 Follow up: IV Status: Completed infusion; IV Intake: 500ml aj1 11:15 Drug: morphine 2 mg Route: IVP; Site: right antecubital; aj1 12:30 Follow up: Response: No adverse reaction; RASS: Alert and Calm (0) aj1 15:00 Drug: Flagyl 500 mg Volume: 100 ml; Route: IVPB; Rate: 200 ml/hr; Infused Over: 30 aj1 mins; Site: right antecubital; 16:24 Follow up: IV Status: Completed infusion rv 16:24 Drug: Cipro 400 mg Volume: 200 ml; Route: IVPB; Infused Over: 60 mins; Site: right rv antecubital; 18:58 Follow up: IV Status: Completed infusion; IV Intake: 200ml aj1 Intake: 12:30 IV: 500ml; Total: 500ml. aj1 18:58 IV: 200ml; Total: 700ml. aj1 Outcome: 14:51 Decision to Hospitalize by Provider. jmm 18:58 Admitted to Med/surg accompanied by tech, via stretcher, with chart. aj1 18:58 Condition: good 18:58 Discharge instructions given to patient, family, Instructed on the need for admit, Demonstrated understanding of instructions. 19:02 Patient left the ED. aj1 Signatures: Dispatcher [employer] Liberty Pollard RN RN aj1 Hernando Ponce PA PA jmm Martinez, Amelia as Smirch, Shelby RN RN ss Chencho Weber, RN RN Leydi, Angeline 1
[2019-08-28] MEDS ORDERED: METRONIDAZOLE 500mg IVPB 500 MG/100 ML BAG IV ONE (14:54)
[2019-08-28] MEDS ORDERED: CIPROFLOXACIN 400mg IV 400 MG/200 ML BAG IV ONE (14:54)
--- NOTE | 2019-08-28 18:19 | P.HP ---
Certification for Inpatient Patient admitted to: Inpatient With expected LOS: >2 Midnights Practitioner: I am a practitioner with admitting privileges, knowledge of patient current condition, hospital course, and medical plan of care. Services: Services provided to patient in accordance with Admission requirements found in Title 42 Section 412.3 of the Code of Federal Regulations Patient History Date of Service: 08/28/19 Primary Care Provider: Dr Bella Reason for admission: Abdominal pain History of Present Illness: Patient is an 88-year-old male with past medical history of hypertension diabetes dementia and CVA who was in his usual state of health until 2 days prior to admission when the patient had sudden onset of right-sided abdominal pain. Patient denies any unusual foods well water or travel outside the country. Patient does report some nausea but no vomiting. Patient denies any fevers chills shortness of breath or diarrhea. No alleviating factors. Patient 's symptoms are constant moderate progressively worsening. In the ER his workup [place] [address] [place] scan was positive for colitis. No signs of sepsis. Patient was referred for admission. When seen in the ER he was awake alert oriented x3 in some mild distress due to pain Allergies No Known Drug Allergies Allergy (Unknown, Verified 08/06/15 10:10) Unknown No Known Allergies Allergy (Uncoded 02/24/18 21:37) Unknown Home medications list reviewed: Yes Home Medications: hydroCHLOROthiazide [Hydrodiuril] 25 mg PO BID 07/20/15 Baclofen [Lioresal*] 10 mg PO DAILY #30 tab 08/11/15 Hydralazine [Apresoline*] 100 mg PO BID #60 tab 08/11/15 Lisinopril [Prinivil*] 40 mg PO NOON #30 tab 08/11/15 Metformin ER [Glucophage ER*] 750 mg PO BIDWM #60 tab.sa 08/11/15 Potassium Oral Tab [Klor-Con 10 mEq Tab*] 10 meq PO BID #60 tab 08/11/15 Spironolactone [Aldactone*] 50 mg PO DAILY #30 tab 08/11/15 Aspirin [Adolfo Chewable] 81 mg PO DAILY 02/25/18 Carvedilol [Coreg*] 6.25 mg PO BID 02/25/18 Labetalol HCl [Trandate*] 100 mg PO BID 02/25/18 cloNIDine HCl [Catapres] 0.1 mg PO DAILY 02/25/18 Lactobacillus Acidophilus [Probiotic] 1 each PO DAILY WITH BREAKFAST #30 capsule 02/26/18 metroNIDAZOLE [Flagyl] 500 mg PO Q8H 5 Days #15 tablet 02/26/18 - Past Medical/Surgical History Diabetic: Yes -: htn -: hx of dvt -: DM - NIDDM -: Dementia -: History of CVA with right-sided weakness Past Surgical History: Patient denies surgical history - Family History Father -: Hypertension Brother -: Hypertension, Diabetes - Social History Smoking Status: Never smoker Alcohol use: No CD- Drugs: No Caffeine use: Yes Place of Residence: Home Review of Systems 10-point ROS is otherwise unremarkable Gastrointestinal: As per HPI Physical Examination - Vital Signs Temperature: 97.9 F Blood Pressure: 107/79 Pulse: 95 Respirations: 16 Pulse Ox (%): 96 - Physical Exam General: Alert, Oriented x3, Mild distress, Other (Ill-appearing elderly male) HEENT: Atraumatic, PERRLA, Mucous membr. moist/pink, EOMI, Sclerae nonicteric Neck: Supple, JVD not distended, No LAD Respiratory: Clear to auscultation bilaterally, Normal air movement Cardiovascular: No edema, Regular rate/rhythm, Normal S1 S2, Abnormal pulses Gastrointestinal: Normal bowel sounds, No rebound, No guarding, Distended, Tenderness (Right upper and lower quadrant) Musculoskeletal: No clubbing, No tenderness Integumentary: No rashes, No erythema Neurological: Normal tone, Cranial nerves 3-12 intact, Normal affect, Other ( Facial asymmetry), Abnormal strength (Left lower extremity weakness) - Studies Laboratory Data (last 24 hrs) 08/28/19 11:12: Creatinine 1.30 08/28/19 11:12: WBC 17.2 H, Hgb 13.3 L, Hct 38.7 L, Plt Count 288 08/28/19 11:12: Sodium 137, Potassium 4.7, BUN 27 H, Creatinine 1.31 H, Glucose 107 H, Total Bilirubin 0.4, AST 16, ALT 26, Alkaline Phosphatase 86, Lipase 52 L Imagings Data: CT scan of the abdomen per verbal report shows colitis from the cecum to the descending colon Assessment and Plan - Plan 1. Acute colitis CT scan shows colitis from cecum to descending colon. Will start on IV antibiotics. IV fluids. Pain control with IV analgesia. Clear liquids only. Consult surgery if not improving. Patient has elevated white blood cell count, but no signs of sepsis lactate is normal. 2. Diabetes mellitus type 2 sdo-rfdcbww-rfmwypfdg with hyperglycemia. Will start on sliding scale and monitor blood glucose levels. 3. Essential hypertension. Stable. resume home medications as appropriate 4. History of CVA. Stable will resume home medications 5. DVT prophylaxis with Lovenox. Discharge Plan: Home Plan to discharge in: 48 Hours - Advance Directives Does patient have a Living Will: No Does patient have a Durable POA for Healthcare: No - Code Status/Comfort Care Code Status Assessed: Yes
--- NOTE | 2019-08-28 18:40 | RAD REPORT ---
EXAM DESCRIPTION: CT ABDOMEN AND PELVIS W CONTRAST CLINICAL HISTORY: Abdominal pain. COMPARISON: CT study 2018 TECHNIQUE: During dynamic enhancement using 100 mL non-ionic contrast, biphasic 5 mm thick images of the abdomen and pelvis were obtained. No oral contrast was administered. This exam was performed according to our departmental dose-optimization program, which includes automated exposure control, adjustment of the mA and/or kV according to patient size and/or use of iterative reconstruction technique. FINDINGS: No acute lung base finding. The patient has significant bilateral gynecomastia, No pericardial thickening or effusion. No solid mass of the liver is identified. The patient has multiple rounded thin-walled fluid attenuation masses. The largest is in the left lobe at 4.4 cm. Most are much smaller in the 8-12 mm range. These are all believed to be cysts. No spleen abnormality. No pancreatic or peripancreatic abnormality. The gallbladder is well filled but not dilated. No biliary tree dilatation. No adrenal abnormality. Symmetric renal function is present. Bilateral renal cysts are present including a large 10 cm cyst in the lower pole of the right kidney. No pyelonephritis or acute renal parenchymal process. No acute urinary bladder finding. The prostate gland is enlarged without evidence for invasion of adjacent structures. No gastric dilatation or gastric wall thickening. Stomach assessment is limited due to absence of intra lumen content and extrinsic compression. No small bowel dilatation. Appendix is not well defined. Acute appendicitis is not suspected. From the tip of the cecum to the mid descending colon there is prominent circumferential wall thickening of the colon. The patient has a tortuous and redundant sigmoid colon extending to the left upper quadrant of the abdomen. There is a large amount of stool dilating the sigmoid colon and the rectum. The rectum is dilated to 8 cm. An obstructing mass is not seen. No free air or pneumatosis. No free fluid or inflammatory stranding. There is a segment of descending sigmoid colon junction between the areas of wall thickening and dilation that is normal in appearance. No mass or bulky lymphadenopathy. Advanced bony degenerative changes are present. No pathologic bone process. Dense arterial tree calcifications are present. IMPRESSION: 1. Prominent circumferential wall thickening of the colon from tip of the cecum through the mid descending colon. The pattern is non-specific. Colitis would be the primary consideration. Typhlitis is possible but usually doesnt extend to the left side of the colon. Ischemic bowel is possible though felt to be lower in likelihood. There is relatively mild arterial tree calcifications. Distal superior mesenteric vasculature is well opacified. 2. A large amount of stool dilating the rectum to 8 cm and dilating the sigmoid colon. There is normal wall thickness colon between the dilated portion and the portion showing wall thickening. 3. No free air, pneumatosis or surgically emergent finding.
[2019-08-28] MEDS ORDERED: METRONIDAZOLE 500mg IVPB 500 MG/100 ML BAG IV SCH (19:39)
[2019-08-28] MEDS ORDERED: GLUCAGON 1 MG/VIAL IM PRN (19:39)
[2019-08-28] MEDS ORDERED: ONDANSETRON 4 MG/2 ML VIAL IV PRN (19:39)
[2019-08-28] MEDS ORDERED: D50W 25 GM/50 ML SYRINGE IV PRN (19:39)
[2019-08-28] MEDS ORDERED: MORPHINE 2 MG/ML SYR IV PRN (19:39)
[2019-08-28] MEDS: INSULIN -REGULAR HUMAN 50 UNIT/0.5 ML ML SQ SCH (21:00)
[2019-08-28 22:09] VITALS: BMI 25.1
[2019-08-28] MEDS: METRONIDAZOLE 500mg IVPB 500 MG/100 ML BAG IV SCH (23:01)
[2019-08-28] MEDS: D5 0.45 NS 1,000 ML IV SCH (23:01)
[2019-08-29] MEDS: CIPROFLOXACIN 400mg IV 400 MG/200 ML BAG IV SCH ×2 (03:23→15:29)
[2019-08-29 05:45] LABS: Absolute Lymphocytes (CBC) 1.1 K/uL (0.7-4.9); Basophils % 0.7 % (0-1.3); Hematocrit 36.6 % (39.6-49.0); Lymphocytes % 9.3 % (15.3-44.8); MPV 7.6 fL (7.6-11.3); RBC Red Blood Cell Count 3.81 M/uL (4.33-5.43)
[2019-08-29] MEDS: METRONIDAZOLE 500mg IVPB 500 MG/100 ML BAG IV SCH ×3 (06:04→22:11)
[2019-08-29 06:10] LABS: Potassium 4.7 mmol/L (3.5-5.1)
[2019-08-29] MEDS: INSULIN -REGULAR HUMAN 50 UNIT/0.5 ML ML SQ SCH ×4 (07:30→21:00)
[2019-08-29] MEDS: D5 0.45 NS 1,000 ML IV SCH ×2 (11:20→15:30)
--- NOTE | 2019-08-29 19:37 | PN ---
Date of Progress Note: 08/29/2019 Subjective: Patient seen and examined. Chart reviewed and case discussed with RN. Patient is doing significantly better. Pain is improved. Daughter at the bedside. Treatment plan explained. All q uestions answered. Physical Examination: Vital Signs: Temperature 97, heart rate 71, blood pressure 142/79, respirations 16, O2 of 95% on [place] m air. General: Awake, alert, oriented x3, in some mild distress. Elderly male, ill appearing. CV: S1, S2. Peripheral pulses present. Respiratory: Moving air well bilaterally. No wheezing or stridor. Gastrointestinal: Abdomen is soft. Mild tenderness to palpation in the right side. No rebound or g uarding. Positive bowel sounds. Extremities: No clubbing, cyanosis. No edema. Neuro: Patient has right-sided weakness and facial asymmetry. Laboratory Data: Sodium 135, potassium 4.7, chloride 105, CO2 of 24, BUN 25, creatinine 1.06, glucos e 114, calcium 9.1. WBC 11.5, H and H 12.7 and 36.6, platelets 282, neutrophils 76%. Assessment: 88-year-old male with: 1.Acute colitis. We will continue with IV antibiotics. We will follow up on cultures. WBC count t rending down. Pain is improving. Patient will need outpatient colonoscopy once inflammation has dec reased in 6-8 weeks. Patient did have colonoscopy 5-7 years ago. Daughter does not remember the res ults. 2.Acute kidney injury. Creatinine is normalized. We will continue to monitor. Avoid NSAIDs. Cont inue IV fluids. 3.Diabetes mellitus type 2, eey-epnxxms-omkxkfero with hyperglycemia. We will continue sliding scal e insulin and monitor Accu-Cheks. 4.Essential hypertension, stable. 5.History of cerebrovascular accident with right-sided weakness, stable. 6.Deep vein thrombosis prophylaxis with Lovenox. Plan: Advance diet as tolerated. PT eval. The patient is wheelchair bound. Likely discharge in e next 24-48 hours depending on clinical response. /SONU Voice ID: [id number] Report ID: [id number]
[2019-08-29] MEDS: CARVEDILOL 3.125 MG TAB PO SCH (22:03)
[2019-08-30] MEDS: CIPROFLOXACIN 400mg IV 400 MG/200 ML BAG IV SCH ×2 (04:59→16:48)
[2019-08-30] MEDS: D5 0.45 NS 1,000 ML IV SCH ×2 (04:59→14:00)
[2019-08-30 06:58] LABS: Basophils % 0.2 % (0-1.3); Hematocrit 36.9 % (39.6-49.0); Lymphocytes % 9.2 % (15.3-44.8); MPV 7.5 fL (7.6-11.3); RBC Red Blood Cell Count 3.85 M/uL (4.33-5.43)
[2019-08-30 07:07] LABS: BUN Blood Urea Nitrogen 14 mg/dL (7-18); Bicarbonate 25 mmol/L (21-32); Glucose Level 116 mg/dL (74-106); Potassium 4.5 mmol/L (3.5-5.1); Sodium Level 134 mmol/L (136-145)
[2019-08-30] MEDS: INSULIN -REGULAR HUMAN 50 UNIT/0.5 ML ML SQ SCH ×4 (07:30→21:00)
[2019-08-30] MEDS: METRONIDAZOLE 500mg IVPB 500 MG/100 ML BAG IV SCH ×3 (07:38→23:34)
[2019-08-30] MEDS: CARVEDILOL 3.125 MG TAB PO SCH ×2 (09:14→22:09)
[2019-08-30] MEDS: LORATADINE 10 MG TAB PO SCH (09:15)
[2019-08-30] MEDS ORDERED: HYDRALAZINE HCL 20 MG/ML VIAL IV PRN (12:40)
--- NOTE | 2019-08-30 20:32 | PN ---
Date of Progress Note: 08/30/2019 Subjective: Patient seen and examined. Chart reviewed and case discussed with RN. Medications list reviewed. Patient is doing well. Still having some pain in the right upper and lower quadrant. To lerating diet. Physical Examination: Vital Signs: Temperature 97.1, heart rate 70, blood pressure 160/88, respirations 16, O2 of 92% on r oom air. General: Awake, alert, oriented x3. Elderly male, slightly ill-appearing. CV: S1, S2. Regular rate and rhythm. Peripheral pulses present. Respiratory: Moving air well bilaterally. No wheezing. Gastrointestinal: Abdomen is soft. Mild distention. Mild tenderness to palpation on the right side . No rebound or guarding. Extremities: No clubbing, cyanosis, or edema. Neuro: Patient has left-sided weakness and facial asymmetry. Laboratory Data: Sodium 134, potassium 4.9, chloride 102, CO2 of 25, BUN 14, creatinine 0.83, glucos e 116, calcium 8.8. WBC 10.4, H and H 12.8 and 36.9, platelets 272, neutrophils 76%. Urine culture less than 10,000 units showing mixed caprice. Assessment: An 88-year-old male with: 1.Acute colitis. Continue IV antibiotics. WBC count now normalized; however, still continues to mccabe ve pain. Patient will need outpatient colonoscopy. Consider surgical evaluation due to pain. We wi ll advance diet as tolerated. 2.Acute kidney injury, resolved. Creatinine normalized. Continue to monitor. Avoid NSAIDs. Adjus t IV fluids. 3.Diabetes mellitus type 2, lur-qmjxfun-eegpkwqkr with hyperglycemia. Continue sliding scale insuli n and monitor Accu-Cheks. 4.Hypertension, stable. 5.History of cerebrovascular accident with left-sided weakness, stable. 6.Deep venous thrombosis prophylaxis with Lovenox. Plan: Likely discharge in a.m. if continues to improve. SA/MODL Voice ID: [id number] Report ID: [id number]
[2019-08-30] MEDS: HYDRALAZINE HCL 25 MG TABLET PO SCH (22:09)
[2019-08-31] MEDS: CIPROFLOXACIN 400mg IV 400 MG/200 ML BAG IV SCH ×2 (05:07→17:01)
[2019-08-31 06:10] LABS: Absolute Lymphocytes (CBC) 1.3 K/uL (0.7-4.9); Basophils % 0.4 % (0-1.3); Hematocrit 39.4 % (39.6-49.0); Lymphocytes % 10.6 % (15.3-44.8); MPV 8.4 fL (7.6-11.3); RBC Red Blood Cell Count 4.12 M/uL (4.33-5.43)
[2019-08-31 06:16] LABS: Potassium 4.5 mmol/L (3.5-5.1)
[2019-08-31] MEDS: METRONIDAZOLE 500mg IVPB 500 MG/100 ML BAG IV SCH ×3 (06:48→23:59)
[2019-08-31 07:12] LABS: Blood Morphology Comment NOT SEEN (NOT SEEN); Platelet Estimate ADEQ; Urine White Blood Cell Casts OK
[2019-08-31] MEDS: INSULIN -REGULAR HUMAN 50 UNIT/0.5 ML ML SQ SCH ×4 (07:30→21:00)
[2019-08-31] MEDS: CARVEDILOL 3.125 MG TAB PO SCH ×2 (09:00→22:18)
[2019-08-31] MEDS: SPIRONOLACTONE 25 MG TABLET PO SCH (09:19)
[2019-08-31] MEDS: HYDRALAZINE HCL 25 MG TABLET PO SCH ×2 (09:20→22:19)
[2019-08-31] MEDS: LORATADINE 10 MG TAB PO SCH (09:20)
--- NOTE | 2019-08-31 14:24 | CON ---
Date of Consultation: 08/31/2019 Reason For Consultation: Colitis. History Of Present Illness: The patient is an 88-year-old gentleman with multiple medical problems, who was admitted on Saturday with diffuse abdominal pain mostly on the right side. He had some nausea, but no vomiting. Initially, he did not have any diarrhea, but yesterday, he had 5 episodes of bowel movements. He was admitted on Saturday and was started on IV antibiotics and he had leukocytosis, and as his white count went up today, I was consulted. He is awake, alert. States that his pain is on the right lower side, but he is tolerating his soft GI diet. No nausea or vomiting currently and no severe pain. No fever or chills. No sore throat, runny nose, cough, headaches, or dizziness. No ch est pain. Review of Systems: Otherwise unremarkable. Past Medical History: Significant for hypertension, history of DVT, type 2 diabetes, dementia, histo ry of stroke with right-sided weakness. Past Surgical History: Negative. Allergies: NONE. Social History: He does not smoke or drink. Family History: Significant for hypertension and diabetes. Physical Examination: Vital Signs: Stable. He is afebrile. General: He is awake and alert. Head and Neck: Cranial nerves 2 through 12 are grossly within normal limits. No neck masses. No JV D. Throat clear. Neck supple. Chest: Clear. Heart: S1, S2. Abdomen: Soft. Positive bowel sounds. Mild distention, but no rebound, rigidity, or guarding. The re is minimal tenderness on the right side. No abdominal wall hernia appreciated. Extremities: Adequately perfused. Nontender. Neuro: Nonfocal. Laboratory Data: White count was 10.4 yesterday, however, is 12.3 today, but the left shift has impr jann. His chemistries reviewed. He is not acidotic. His CT of the abdomen and pelvis that was done on admission was reviewed as well, which showed colitis from the cecum to the mid descending colon a nd some dilatation of the rectum with stool in it, and I believe that problem has probably better bec ause of all the bowel movements. There was no evidence of appendicitis seen. Assessment: 88-year-old gentleman with colitis. Recommendations: Continue IV antibiotics. If he is having diarrhea, we should get stool for C diff, O and P, and C and S. GI consultation. No need for surgical intervention at this time. Reconsult ariel GOLDEN/SONU Voice ID: [id number] Report ID: [id number]
--- NOTE | 2019-08-31 17:39 | PN ---
Date of Progress Note: 08/31/2019 Subjective: Patient is seen and examined. Chart reviewed and case discussed with RN, Dr. Goldman, and Dr. Britt. Patient is still complaining of some pain in the right lower quadrant. Case discussed with radiologist, Dr. Park. No appendiceal findings on CT report were still pending due to the de lay from recent outages. Medication List: Reviewed. Physical Examination: Vital Signs: Temperature 97.2, heart rate 65, blood pressure 145/89, respirations 16, O2 of 97% on r oom air. General: Awake, alert, oriented x3. Mild distress due to pain. CV: S1, S2. Peripheral pulses present. Respiratory: Moving air well bilaterally. No wheezing or stridor. Gastrointestinal: Abdomen is soft. Tenderness to palpation of the right lower quadrant and epigastr ium. No rebound or guarding. Extremities: No clubbing, cyanosis, edema. Neurologic: Nonfocal. Laboratory Data: Sodium 136, potassium 4.5, chloride 106, CO2 of 25, BUN 13, creatinine 1.03, glucos e 92, calcium 8.7. WBC 12.3, H and H 13.4 and 39.4, platelets 263, neutrophils 74%. Stool cultures pending. Assessment: An 88-year-old male with: 1.Acute colitis. We will continue with IV antibiotics. WBC count is trending up. Still has pain. Surgery and GI have been consulted. 2.Acute kidney injury, resolved. We will continue to monitor. 3.Diabetes mellitus type 2, tlv-vhlplbr-lyolpxkik with hyperglycemia. We will continue sliding scal e insulin. Monitor blood glucose levels. 4.Essential hypertension, stable. Medication resumed. 5.History of cerebrovascular accident with left-sided weakness, stable. 6.Deep venous thrombosis prophylaxis with Lovenox. Plan: GI eval. Follow up on stool studies. SA/MODL Voice ID: [id number] Report ID: [id number]
[2019-09-01] MEDS: CIPROFLOXACIN 400mg IV 400 MG/200 ML BAG IV SCH (04:53)
[2019-09-01] MEDS: INSULIN -REGULAR HUMAN 50 UNIT/0.5 ML ML SQ SCH (07:30)
[2019-09-01] MEDS ORDERED: ENOXAPARIN 40 MG/0.4 ML SQ SCH (09:00)
[2019-09-01 09:32] VITALS: TEMP 97.5
[2019-09-01] MEDS: METRONIDAZOLE 500mg IVPB 500 MG/100 ML BAG IV SCH (09:38)
[2019-09-01] MEDS: CARVEDILOL 3.125 MG TAB PO SCH (09:38)
[2019-09-01 09:39] VITALS: O2SAT 95
[2019-09-01] MEDS: LORATADINE 10 MG TAB PO SCH (09:39)
[2019-09-01] MEDS: HYDRALAZINE HCL 25 MG TABLET PO SCH (09:39)
[2019-09-01] MEDS: SPIRONOLACTONE 25 MG TABLET PO SCH (09:39)
--- NOTE | 2019-09-01 11:46 | P.DS ---
Admission Date: 08/28/19 Discharge Date: 09/01/19 Primary Care Provider: Dr Bella Disposition: ROUTINE DISCHARGE Discharge Condition: GOOD Reason for Admission: Abdominal pain Brief History of Present Illness: Patient was admitted for constipation and colitis. Was admitted by the hospitalist. He had a elevated wbc. Was started on antibiotics and admitted. Hospital Course: Patient was admitted for colitis and pain controll. He had a bowel movement which resolved his pain. The patient had stool studies orders. Was eating and moving well with no pain. WBC recovered. The patient has not had his stool cultures. Will send him home on flagyl. Will have him follow up with me in the office in a week Vital Signs/Physical Exam: Temp Pulse Resp BP Pulse Ox 97.5 F 70 18 145/85 H 95 09/01/19 08:00 09/01/19 09:39 09/01/19 08:00 09/01/19 09:39 09/01/19 08:00 General: Alert, In no apparent distress HEENT: Atraumatic, PERRLA, EOMI Neck: Supple, JVD not distended Respiratory: Clear to auscultation bilaterally, Normal air movement Cardiovascular: Regular rate/rhythm, Normal S1 S2 Gastrointestinal: Normal bowel sounds, No tenderness Musculoskeletal: No tenderness Integumentary: No rashes Neurological: Normal speech, Normal tone, Normal affect Lymphatics: No axilla or inguinal lymphadenopathy Laboratory Data at Discharge: WBC 12.3 K/uL (4.3-10.9) H D 08/31/19 05:41 Hgb 13.4 g/dL (13.6-17.9) L 08/31/19 05:41 Hct 39.4 % (39.6-49.0) L 08/31/19 05:41 Plt Count 263 K/uL (152-406) 08/31/19 05:41 Sodium 136 mmol/L (136-145) 08/31/19 05:41 Potassium 4.5 mmol/L (3.5-5.1) 08/31/19 05:41 BUN 13 mg/dL (7-18) 08/31/19 05:41 Creatinine 1.03 mg/dL (0.55-1.3) 08/31/19 05:41 Glucose 92 mg/dL (74-106) 08/31/19 05:41 Total Bilirubin 0.4 mg/dL (0.2-1.0) 08/28/19 11:12 AST 16 U/L (15-37) 08/28/19 11:12 ALT 26 U/L (12-78) 08/28/19 11:12 Alkaline Phosphatase 86 U/L (45-117) 08/28/19 11:12 Lipase 52 U/L (73-393) L 08/28/19 11:12 Home Medications: Hydralazine HCl [Apresoline] 100 mg PO BID 08/29/19 RX: Carvedilol [Coreg*] 1 tab PO BID 08/29/19 RX: Labetalol HCl [Trandate*] 100 mg PO BID 08/29/19 RX: Loratadine [Claritin*] 1 tab PO DAILY 08/29/19 RX: Potassium Chloride [Klor-Con 10] 1 tab PO BID 08/29/19 RX: Spironolactone [Aldactone*] 1 tab PO DAILY 08/29/19 metroNIDAZOLE [Flagyl] 500 mg PO Q8H 10 Days #30 tablet 09/01/19 New Medications: metroNIDAZOLE [Flagyl] 500 mg PO Q8H 10 Days #30 tablet Followup: Dano Bella MD [Primary Care Provider] - 1-2 Weeks (Call to schedule an appointment) Time spent managing pt's care (in minutes): 30
[2019-09-01 12:49] VITALS: BP 133/71
--- NOTE | 2019-09-01 14:34 | PN ---
Date of Progress Note: 09/01/2019 Subjective: Patient is awake, alert. No complaints. Having bowel movements. Tolerating diet. Objective: Vital Signs: Stable. Afebrile. Abdomen: Completely benign. Assessment: Colitis and constipation resolved. Recommendations: Continue antibiotic care for the colitis. Follow up with GI. Reconsult Surgery p. r.n. Cleared for discharge. CHANTEL/SONU Voice ID: [id number] Report ID: [id number]
== END 2019-09-01 11:22 | disposition home or self-care (01) | DRG 392 ==
LOC: ER 09:18 → ERHOLD 15:04 → 4TH 18:15
PROVIDERS: ADMIT Internal Medicine; ATTEND Family Medicine
DX: K52.9 Noninfective gastroenteritis and colitis, unspecified (principal); N17.9 Acute kidney failure, unspecified; I69.354 Hemiplegia and hemiparesis following cerebral infarction affecting left non-dominant side; K59.00 Constipation, unspecified; E11.65 Type 2 diabetes mellitus with hyperglycemia; I10 Essential (primary) hypertension; Z86.718 Personal history of other venous thrombosis and embolism
CPT/HCPCS: 36415; 74177; 80048; 80076; 81003; 82962; 83605; 83690; 85025; 87045; 87046; 87086; 87088; 87177; 87209; 87324; 87449; 94760; 96361; 96365; 96366; 96367; 96375; 97112; 97161; 97530; 99285; J0360; J0744; J1650; J2270; J2405; J7040; J7799; Q9967

== ENCOUNTER 2019-09-07 18:39 | Inpatient (IN) | payer OTHER ==
[2019-09-07 20:22] LABS: Absolute Lymphocytes (CBC) 1.1 K/uL (0.7-4.9); Basophils % 0.3 % (0-1.3); Hematocrit 40.8 % (39.6-49.0); Lymphocytes % 9.7 % (15.3-44.8); MPV 7.2 fL (7.6-11.3); RBC Red Blood Cell Count 4.22 M/uL (4.33-5.43)
[2019-09-07 20:35] LABS: Albumin 2.8 g/dL (3.4-5.0); Bilirubin Direct 0.2 mg/dL (0-0.2); Bilirubin Total 0.5 mg/dL (0.2-1.0); Potassium 3.8 mmol/L (3.5-5.1)
[2019-09-07] MEDS ORDERED: NA CHLORIDE 0.9% 1,000 ML ONE (20:56)
[2019-09-07] MEDS ORDERED: CEFTRIAXONE/SWI 1gm 1 GM/10 ML SYR ONE (20:56)
[2019-09-07] MEDS ORDERED: ONDANSETRON 4 MG/2 ML VIAL ONE (20:56)
[2019-09-07] MEDS ORDERED: METRONIDAZOLE 500mg IVPB 500 MG/100 ML BAG IV ONE (20:56)
[2019-09-07] MEDS ORDERED: MORPHINE 4 MG/ML SYR ONE ×2 (20:56→22:56)
[2019-09-07 21:32] LABS: Urine Blood NEGATIVE (NEG); Urine Glucose NEGATIVE (NEG); Urine Protein NEGATIVE (NEG)
[2019-09-07] MEDS ORDERED: MORPHINE 2 MG/ML SYR ONE (22:14)
--- NOTE | 2019-09-07 23:53 | EDPHYS ---
Physician Documentation [facility] Name: Mahendra St Sr Age: 88 yrs Sex: Male : 1930 Arrival Date: 09/07/2019 Time: 18:40 Bed 24 Private MD: ED Physician Gibson Garcia HPI: 09/07 19:48 This 88 yrs old Black Male presents to ER via Wheelchair with complaints of Abdominal ma2 Pain. 19:48 The patient presents with abdominal pain right lower quadrant, abdominal distention ma2 that is diffuse. Onset: The symptoms/episode began/occurred gradually, 2 day(s) ago. The symptoms do not radiate. Associated signs and symptoms: Pertinent negatives: nausea, vomiting, and diarrhea, nausea and vomiting, anorexia, chest pain, diarrhea, fever, palpitations. Severity of pain: At its worst the pain was moderate in the emergency department the pain is unchanged. The patient has not experienced similar symptoms in the past, The patient has experienced a previous episode, last week. Historical: - Allergies: 19:12 NKA; bb - Home Meds: 19:12 carvedilol 6.25 mg Oral tab 1 tab 2 times per day [Active]; hydralazine 100 mg Oral tab bb 1 tab 2 times per day [Active]; hydrochlorothiazide 25 mg Oral tab 1 tab 2 times per day [Active]; Klor-Con 10 10 mEq Oral TbER 1 tab 2 times per day [Active]; labetalol 100 mg Oral tab 1 tab 2 times per day [Active]; lisinopril 40 mg Oral tab 1 tab once daily [Active]; metformin 750 mg Oral Tb24 1 tab BID [Active]; spironolactone 50 mg Oral tab 1 tab once daily [Active]; Flagyl 500 mg Oral tab 1 tab every 8 hours [Active]; - PMHx: 19:12 CVA; Diabetes - NIDDM; DVT; Hypertension; L sided paralysis post CVA; bb - PSHx: 19:12 neck surgery; bb - Immunization history:: Adult Immunizations up to date. - Social history:: Smoking status: Patient/guardian denies using tobacco. - Ebola Screening: : No symptoms or risks identified at this time. ROS: 19:48 Constitutional: Negative for fever, chills, and weight loss. ma2 19:48 All other systems are negative. Exam: 19:48 Constitutional: This is a well developed, well nourished patient who is awake, alert, ma2 and in no acute distress. Chest/axilla: Normal chest wall appearance and motion. Nontender with no deformity. No lesions are appreciated. Cardiovascular: Regular rate and rhythm with a normal S1 and S2. No gallops, murmurs, or rubs. Normal PMI, no JVD. No pulse deficits. Respiratory: Lungs have equal breath sounds bilaterally, clear to auscultation and percussion. No rales, rhonchi or wheezes noted. No increased work of breathing, no retractions or nasal flaring. Back: No spinal tenderness. No costovertebral tenderness. Full range of motion. Skin: Warm, dry with normal turgor. Normal color with no rashes, no lesions, and no evidence of cellulitis. MS/ Extremity: Pulses equal, no cyanosis. Neurovascular intact. Full, normal range of motion. Neuro: Awake and alert, GCS 15, oriented to person, place, time, and situation. Cranial nerves II-XII grossly intact. Motor strength 5/5 in all extremities. Sensory grossly intact. Cerebellar exam normal. Normal gait. 19:48 Abdomen/GI: Inspection: distension, that is moderate, Bowel sounds: normal, Palpation: moderate abdominal tenderness, in the right lower quadrant and left lower quadrant, Liver: no appreciated palpable abnormalities, Hernia: not appreciated. Vital Signs: 19:12 BP 106 / 64; Pulse 102; Resp 16 S; Temp 98.4(O); Pulse Ox 99% on R/A; Weight 90.26 kg bb (R); Height 5 ft. 11 in. (180.34 cm) (R); Pain 8/10; 20:15 BP 124 / 78; Pulse 84; Resp 18; Pulse Ox 100% on R/A; aj1 21:15 BP 128 / 72; Pulse 76; Resp 18; Pulse Ox 95% on R/A; aj1 22:45 BP 132 / 77; Pulse 73; Resp 17 S; Pulse Ox 99% on R/A; ca1 23:19 BP 124 / 70; Pulse 72; Resp 17 S; Pulse Ox 98% on R/A; ca1 23:56 BP 114 / 61; Pulse 74; Resp 17 S; Pulse Ox 100% on R/A; ca1 10/15 01:05 BP 124 / 83; Pulse 68; Resp 15; Temp 98; Pulse Ox 99% on R/A; rv 09/07 19:12 Body Mass Index 27.75 (90.26 kg, 180.34 cm) bb MDM: 09/07 19:20 Patient medically screened. [facility] 19:48 Differential diagnosis: cholecystitis, Cholelithiasis, diverticulitis, gastritis, ma2 gastroesophageal reflux disease, Hepatitis, Irritable bowel syndrome. 23:50 Data reviewed: vital signs, nurses notes, lab test result(s), radiologic studies, CT pkl scan. 23:52 ED course: Talked to Dr. Mota, to admit.. pkl 09/07 19:25 Order name: Basic Metabolic Panel; Complete Time: 21:10 [facility] 09/07 19:25 Order name: CBC with Diff; Complete Time: 21:10 [facility] 09/07 19:25 Order name: Creatinine for Radiology; Complete Time: 21:10 [facility] 09/07 19:25 Order name: Hepatic Function; Complete Time: 21:10 [facility] 09/07 19:25 Order name: Lipase; Complete Time: 21:10 [facility] 09/07 21:22 Order name: Urine Dipstick--Ancillary (enter results); Complete Time: 21:38 [facility] 09/07 19:25 Order name: IV Saline Lock; Complete Time: 21:16 [facility] 09/07 19:37 Order name: CT Abd/Pelvis - IV Contrast Only [facility] 09/07 19:25 Order name: Labs collected and sent; Complete Time: 21:16 [facility] 09/07 19:25 Order name: Urine Dipstick-Ancillary (obtain specimen); Complete Time: 21:51 [facility] 09/07 20:02 Order name: NPO; Complete Time: 21:16 ma2 Administered Medications: 21:15 Drug: Rocephin 1 grams Route: IV; Rate: calculated rate; Site: right antecubital; aj1 22:18 Follow up: IV Status: Completed infusion; IV Intake: 10ml aj1 21:15 Drug: morphine 2 mg {Note: RASS score 0 patient is alert.} Route: IVP; Site: right aj1 antecubital; 21:16 Drug: Zofran 4 mg Route: IVP; Site: right antecubital; aj1 22:17 Follow up: Response: No adverse reaction aj 21:50 Drug: NS 0.9% 1000 ml Route: IV; Rate: 1 bolus; Site: right antecubital; aj09/08 01:07 Follow up: IV Status: Completed infusion rv 09/07 21:50 Drug: Flagyl 500 mg Volume: 100 ml; Route: IVPB; Rate: 200 ml/hr; Infused Over: 30 aj1 mins; Site: right antecubital; 09/08 01:07 Follow up: IV Status: Completed infusion rv 09/07 22:17 Drug: morphine 2 mg Route: IVP; Site: right antecubital; aj1 22:55 Follow up: Response: No adverse reaction; Pain is unchanged, physician notified; RASS: ca1 Alert and Calm (0) 23:00 Drug: morphine 4 mg Route: IVP; Site: right antecubital; ca1 23:20 Follow up: Response: No adverse reaction; Pain is decreased; RASS: Alert and Calm (0) ca1 09/08 01:07 Follow up: Response: No adverse reaction; Marked relief of symptoms; Pain is decreased; rv RASS: Alert and Calm (0) Disposition: 09/07/19 23:52 Hospitalization ordered by Xavier Mota for Inpatient Admission. Preliminary diagnosis is Abdominal pain. Elevated liver functions. Moderate descending and sigmoid colitis. - Bed requested for Telemetry/MedSurg (Inpatient). - Status is Inpatient Admission. rv - Condition is Stable. - Problem is new. - Symptoms are unchanged. UTI on Admission? No Signatures: Dispatcher [employer] EDMS Liberty Singh RN RN aj1 Mariah Bills RN RN mw Lam, Pin, MD MD pkl Ballard, Brenda, RN RN bb Roszak, Josh, PA PA jr8 Abiel Rodegrs MD MD ma2 Chencho Weber RN RN rv Danielle Olvera RN RN ca1 Corrections: (The following items were deleted from the chart) 09/07 23:58 23:52 Hospitalization Ordered by Xavier Mota for Inpatient Admission. Preliminary diagnosis is Abdominal pain. Elevated liver functions. Moderate descending and sigmoid colitis. Bed requested for Telemetry/MedSurg (Inpatient). Status is Inpatient Admission. Condition is Stable. Problem is new. Symptoms are unchanged. UTI on Admission? No. pkl 09/08 01:07 09/07 23:58 09/07/2019 23:52 Hospitalization Ordered by Xavier Mota for Inpatient rv Admission. Preliminary diagnosis is Abdominal pain. Elevated liver functions. Moderate descending and sigmoid colitis. Bed requested for Telemetry/MedSurg (Inpatient). Status is Inpatient Admission. Condition is Stable. Problem is new. Symptoms are unchanged. UTI on Admission? No. mw
--- NOTE | 2019-09-07 23:53 | ER ---
Nurse's Notes [facility] Name: Mahendra St Sr Age: 88 yrs Sex: Male : 1930 Arrival Date: 09/07/2019 Time: 18:40 Bed 24 Private MD: Diagnosis: Abdominal pain. Elevated liver functions. Moderate descending and sigmoid colitis Presentation: 09/07 19:08 Presenting complaint: daughters states pt was admitted for colitis last week and bb discharged on Saturday with antibiotics but started having right lower quad pain yesterday denies vomiting or diarrhea. Transition of care: patient was not received from another setting of care. Onset of symptoms was September 06, 2019. Risk Assessment: Do you want to hurt yourself or someone else? Patient reports no desire to harm self or others. Initial Sepsis Screen: Does the patient meet any 2 criteria? No. Patient's initial sepsis screen is negative. Does the patient have a suspected source of infection? No. Patient's initial sepsis screen is negative. Care prior to arrival: None. 19:08 Method Of Arrival: Wheelchair bb 19:08 Acuity: JACLYN 3 bb Triage Assessment: 19:13 General: Appears in no apparent distress. uncomfortable, Behavior is calm, cooperative. bb Pain: Complains of pain in right lower quadrant Pain currently is 8 out of 10 on a pain scale. Pain began 1 day ago. Neuro: Level of Consciousness is awake, alert, obeys commands, Oriented to person, place, situation. Respiratory: Respiratory effort is even, unlabored, Respiratory pattern is regular. GI: Abdomen is round Reports lower abdominal pain, Patient currently denies diarrhea, vomiting. Historical: - Allergies: 19:12 NKA; bb - Home Meds: 19:12 carvedilol 6.25 mg Oral tab 1 tab 2 times per day [Active]; hydralazine 100 mg Oral tab bb 1 tab 2 times per day [Active]; hydrochlorothiazide 25 mg Oral tab 1 tab 2 times per day [Active]; Klor-Con 10 10 mEq Oral TbER 1 tab 2 times per day [Active]; labetalol 100 mg Oral tab 1 tab 2 times per day [Active]; lisinopril 40 mg Oral tab 1 tab once daily [Active]; metformin 750 mg Oral Tb24 1 tab BID [Active]; spironolactone 50 mg Oral tab 1 tab once daily [Active]; Flagyl 500 mg Oral tab 1 tab every 8 hours [Active]; - PMHx: 19:12 CVA; Diabetes - NIDDM; DVT; Hypertension; L sided paralysis post CVA; bb - PSHx: 19:12 neck surgery; bb - Immunization history:: Adult Immunizations up to date. - Social history:: Smoking status: Patient/guardian denies using tobacco. - Ebola Screening: : No symptoms or risks identified at this time. Screenin:33 Abuse screen: Denies threats or abuse. Denies injuries from another. Nutritional aj1 screening: No deficits noted. Tuberculosis screening: No symptoms or risk factors identified. 09/08 00:00 Fall Risk No fall in past 12 months (0 pts). Secondary diagnosis (15 points) impaired rv mobility, CVA, IV access (20 points). Ambulatory Aid- Crutches/Cane/Walker (15 pts). Gait- Impaired (20 pts.). Mental Status- Oriented to own ability (0 pts). Total Vera Fall Scale indicates Low Risk Score (25-44 pts). Fall prevention measures have been instituted. Side Rails Up X 2 Placed close to Nursing Station Frequent Obs/Assesments occuring Family Present and informed to notify staff if they need to leave bedside As available Patient and Family Educated on Fall Prevention Program and strategies. Assessment: 09/07 19:33 General: Appears in no apparent distress. comfortable, Behavior is calm, cooperative, aj1 appropriate for age, Reports. Pain: Complains of pain in abdomen Pain currently is 8 out of 10 on a pain scale. Quality of pain is described as sharp, Pain began 1 day ago. Is continuous, Noted to be guarding. Neuro: Level of Consciousness is awake, alert, obeys commands, Oriented to person, place, time, situation. Cardiovascular: Patient's skin is warm and dry. Rhythm is regular. Respiratory: Airway is patent Respiratory effort is even, unlabored, Respiratory pattern is regular, symmetrical, GI: Abdomen is distended, Stools are reported to be normal. Last BM was September 06, 2019. Bowel sounds present X 4 quads. Abdomen is tender to palpation in right upper quadrant and right lower quadrant Guarding noted in right upper quadrant and right lower quadrant Reports lower abdominal pain, Patient currently denies diarrhea, nausea, vomiting. : No signs and/or symptoms were reported regarding the genitourinary system. EENT: No signs and/or symptoms were reported regarding the EENT system. Derm: No signs and/or symptoms reported regarding the dermatologic system. Musculoskeletal: Circulation, motion, and sensation intact. 20:30 Reassessment: Patient appears in no apparent distress at this time. No changes from aj1 previously documented assessment. Patient and/or family updated on plan of care and expected duration. Pain level reassessed. Patient is alert, oriented x 3, equal unlabored respirations, skin warm/dry/pink. 21:30 Reassessment: Patient appears in no apparent distress at this time. No changes from aj1 previously documented assessment. Patient and/or family updated on plan of care and expected duration. Pain level reassessed. Patient is alert, oriented x 3, equal unlabored respirations, skin warm/dry/pink. 22:45 Reassessment: Patient appears in no apparent distress at this time. Patient and/or ca1 family updated on plan of care and expected duration. Pain level reassessed. Patient is alert, oriented x 3, equal unlabored respirations, skin warm/dry/pink. 23:56 Reassessment: Patient appears in no apparent distress at this time. Patient and/or ca1 family updated on plan of care and expected duration. Pain level reassessed. Patient is alert, oriented x 3, equal unlabored respirations, skin warm/dry/pink. Vital Signs: 19:12 BP 106 / 64; Pulse 102; Resp 16 S; Temp 98.4(O); Pulse Ox 99% on R/A; Weight 90.26 kg bb (R); Height 5 ft. 11 in. (180.34 cm) (R); Pain 8/10; 20:15 BP 124 / 78; Pulse 84; Resp 18; Pulse Ox 100% on R/A; aj1 21:15 BP 128 / 72; Pulse 76; Resp 18; Pulse Ox 95% on R/A; aj1 22:45 BP 132 / 77; Pulse 73; Resp 17 S; Pulse Ox 99% on R/A; ca1 23:19 BP 124 / 70; Pulse 72; Resp 17 S; Pulse Ox 98% on R/A; ca1 23:56 BP 114 / 61; Pulse 74; Resp 17 S; Pulse Ox 100% on R/A; ca1 10/15 01:05 BP 124 / 83; Pulse 68; Resp 15; Temp 98; Pulse Ox 99% on R/A; rv 09/07 19:12 Body Mass Index 27.75 (90.26 kg, 180.34 cm) bb ED Course: 09/07 18:40 Patient arrived in ED. as 19:10 Triage completed. bb 19:12 Arm band placed on Patient placed in waiting room, Patient notified of wait time. bb Family accompanied patient. 19:20 Abiel Rodgers MD is Attending Physician. ma2 19:33 Liberty Singh, RENU is Primary Nurse. aj1 19:33 Patient has correct armband on for positive identification. aj1 19:33 No provider procedures requiring assistance completed. aj1 19:35 Initial lab(s) drawn, by me, sent to lab. Inserted saline lock: 20 gauge in right aj1 antecubital area, using aseptic technique. Blood collected. 19:38 Radiology exam delayed due to lab results not completed at this time. (BUN/Creatinine). jg6 20:22 Radiology exam delayed due to lab results not completed at this time. (BUN/Creatinine). nj 21:05 Radiology exam delayed due to Nurse to call when patient is ready. nj 21:39 CT Abd/Pelvis - IV Contrast Only In Process Unspecified. EDMS 22:53 Attending Physician role handed off by Abiel Rodgers MD jr8 22:53 Gibson Garcia MD is Attending Physician. jr8 23:50 Xavier Mota is Hospitalizing Provider. pkl 09/08 01:06 Patient admitted, IV remains in place. rv Administered Medications: 09/07 21:15 Drug: Rocephin 1 grams Route: IV; Rate: calculated rate; Site: right antecubital; aj1 22:18 Follow up: IV Status: Completed infusion; IV Intake: 10ml aj1 21:15 Drug: morphine 2 mg {Note: RASS score 0 patient is alert.} Route: IVP; Site: right aj1 antecubital; 21:16 Drug: Zofran 4 mg Route: IVP; Site: right antecubital; aj1 22:17 Follow up: Response: No adverse reaction aj1 21:50 Drug: NS 0.9% 1000 ml Route: IV; Rate: 1 bolus; Site: right antecubital; aj1 10/15 01:07 Follow up: IV Status: Completed infusion rv 09/07 21:50 Drug: Flagyl 500 mg Volume: 100 ml; Route: IVPB; Rate: 200 ml/hr; Infused Over: 30 aj1 mins; Site: right antecubital; 09/08 01:07 Follow up: IV Status: Completed infusion rv 09/07 22:17 Drug: morphine 2 mg Route: IVP; Site: right antecubital; aj1 22:55 Follow up: Response: No adverse reaction; Pain is unchanged, physician notified; RASS: ca1 Alert and Calm (0) 23:00 Drug: morphine 4 mg Route: IVP; Site: right antecubital; ca1 23:20 Follow up: Response: No adverse reaction; Pain is decreased; RASS: Alert and Calm (0) ca1 09/08 01:07 Follow up: Response: No adverse reaction; Marked relief of symptoms; Pain is decreased; rv RASS: Alert and Calm (0) Intake: 09/07 20:50 IV: 1000ml; Total: 1000ml. ca1 20:54 IV: 1000ml; Total: 2000ml. ca1 22:18 IV: 10ml; Total: 2010ml. aj1 Outcome: 23:52 Decision to Hospitalize by Provider. pk 09/08 01:06 Admitted to Med/surg accompanied by tech, via stretcher, room 206, with chart, Report rv called to [facility] Condition: good Instructed on the need for admit. 01:07 Patient left the ED. rv Signatures: Dispatcher [employer] EDMS Liberty Singh RN RN aj1 Gibson Gracia MD MD pkl Mimi Stevens Brenda, RN RN bb Song Squires PA PA jr8 Eren Davis Mohammad, MD MD ma2 Chencho Weber RN RN rv Ashley Martin6 Danielle Olvera RN RN ca1 Corrections: (The following items were deleted from the chart) 09/07 21:53 21:15 BP 128 / 72; Pulse 76bpm; Resp 18bpm; Pulse Ox 95% RA; aj1 aj1
--- NOTE | 2019-09-08 00:09 | P.HP ---
Certification for Inpatient Patient admitted to: Inpatient With expected LOS: >2 Midnights Practitioner: I am a practitioner with admitting privileges, knowledge of patient current condition, hospital course, and medical plan of care. Services: Services provided to patient in accordance with Admission requirements found in Title 42 Section 412.3 of the Code of Federal Regulations Patient History Date of Service: 09/08/19 Reason for admission: Abdominal pain History of Present Illness: 88-year-old man with a history of hypertension, dementia recently admitted on 08/28/2019 for constipation and abdominal pain, diagnosed with colitis, treated with IV antibiotics and discharged 4 days later with oral Flagyl, presented to the emergency department again with worsening abdominal pain, frequent bowel movement, stool described as mucoid, small quantities, no blood. Patient denied any vomiting. He also denied any fever. Patient has dementia and cannot provide much history. Daughter is not sure if patient completed his antibiotic therapy. In the ED, mild leukocytosis noted, his liver enzymes are elevated. CT abdomen and pelvis report improvement in the left-sided colitis but new inflammation in the sigmoid colon. Patient is admitted for further management. Allergies No Known Drug Allergies Allergy (Unknown, Verified 08/06/15 10:10) Unknown No Known Allergies Allergy (Uncoded 02/24/18 21:37) Unknown Home Medications: Carvedilol [Coreg] 3.125 mg PO BID 09/08/19 Hydralazine HCl [Apresoline] 100 mg PO BID 09/08/19 Labetalol HCl [Trandate] 100 mg PO BID 09/08/19 Loratadine [Claritin] 10 mg PO DAILY 09/08/19 Potassium Oral Tab [Klor-Con 10 mEq Tab] 10 meq PO DAILY 09/08/19 Spironolactone [Aldactone] 25 mg PO DAILY 09/08/19 metroNIDAZOLE [Flagyl] 500 mg PO Q8H 09/08/19 - Past Medical/Surgical History Diabetic: Yes -: htn -: hx of dvt -: DM - NIDDM -: Dementia -: History of CVA with right-sided weakness -: neck surgery - Family History Father -: Hypertension Brother -: Hypertension, Diabetes - Social History Alcohol use: No CD- Drugs: No Caffeine use: Yes Review of Systems Other: General: No fever, no malaise, no unintentional weight loss. Eyes: No eye discharge, Respiratory: No cough, no shortness of breath. CVS: No chest pain, no palpitation, no lightheadedness. GI: No nausea no vomit. Genitourinary: No dysuria, no urinary frequency, no incontinence, no hematuria. Musculoskeletal: No joint pains, or joint swelling. Neurology: No headache, no asymmetric, weakness, no problem with swallowing. Except as documented, all other systems reviewed and negative. Physical Examination - Physical Exam General: In no apparent distress, Oriented x3, Cooperative HEENT: Atraumatic, Normocephalic, PERRLA, Mucous membr. moist/pink Neck: Supple, JVD not distended Respiratory: Clear to auscultation bilaterally, Normal air movement Cardiovascular: No edema, Regular rate/rhythm, Normal S1 S2, No murmurs Capillary refill: <2 Seconds Gastrointestinal: Normal bowel sounds, Non-distended, Other (No guarding or rebound tenderness.), Tenderness (Right upper quadrant) Musculoskeletal: No swelling, No erythema Integumentary: No rashes Neurological: Normal strength at 5/5 x4 extr, Cranial nerves 3-12 intact - Studies Laboratory Data (last 24 hrs) 09/07/19 20:00: Creatinine 1.24 09/07/19 20:00: WBC 11.6 H, Hgb 13.5 L, Hct 40.8, Plt Count 285 09/07/19 20:00: Sodium 136, Potassium 3.8, BUN 18, Creatinine 1.23, Glucose 103 , Total Bilirubin 0.5, AST 288 H D, ALT 157 H D, Alkaline Phosphatase 315 H, Lipase 101 Assessment and Plan - Problems (Diagnosis) (1) Acute colitis Current Visit: Yes Status: Acute (2) LFT elevation Current Visit: Yes Status: Acute (3) Diabetes mellitus Onset Date: 07/21/15 Current Visit: No Status: Acute Qualifiers: Diabetes mellitus type: type 2 Diabetes mellitus shirt hemmer insulin use: without shirt hemmer use Diabetes mellitus complication status: without complication Qualified Code(s): E11.9 - Type 2 diabetes mellitus without complications (4) HTN (hypertension) Current Visit: No Status: Acute Qualifiers: Hypertension type: essential hypertension Qualified Code(s): I10 - Essential (primary) hypertension - Plan Admit to general medical floor Start IV Zosyn Clear liquid diet IV morphine p.r.n. for pain management Monitor LFT. Check RUQ sono. Stool studies-C. diff, WBC and stool culture. General surgery consult Patient may require colonoscopy along the line once the inflammation/infection has improved. Continue home antihypertensives Insulin sliding scale for glucose management - Advance Directives Does patient have a Living Will: No Does patient have a Durable POA for Healthcare: No
[2019-09-08] MEDS ORDERED: ONDANSETRON 4 MG/2 ML VIAL IV PRN (00:53)
[2019-09-08] MEDS: NA CHLORIDE 0.9% 1,000 ML IV SCH ×3 (01:57→14:48)
[2019-09-08 03:05] VITALS: BMI 25.5
[2019-09-08 03:25] LABS: Urine Appearance CLEAR; Urine Bilirubin NEGATIVE (NEG); Urine Blood NEGATIVE (NEG); Urine Color YELLOW; Urine Glucose NEGATIVE (NEG); Urine Microscopic Reflex NO UMIC; Urine Protein NEGATIVE (NEG); Urine Specific Gravity >=1.030 (1.005-1.030); Urine Urobilinogen 0.2 mg/dL (0.2-1.0)
[2019-09-08] MEDS ORDERED: PIPER/TAZO/NS 3.375gm 3.375 GM/100 ML BAG ONE (05:03)
[2019-09-08] MEDS ORDERED: PIPER/TAZO/NS 3.375gm 3.375 GM/100 ML BAG IVPB SCH ×2 (06:00→14:00)
[2019-09-08] MEDS: INSULIN -REGULAR HUMAN 50 UNIT/0.5 ML ML SQ SCH ×2 (07:30→11:30)
[2019-09-08] MEDS: ENOXAPARIN 40 MG/0.4 ML SQ SCH (08:39)
--- NOTE | 2019-09-08 10:08 | RAD REPORT ---
EXAM DESCRIPTION: CT abdomen Pelvis W Contrast CLINICAL HISTORY: 88 years Male ABD PAIN. Recent colitis. TECHNIQUE: Contiguous axial images obtained through the abdomen and pelvis following administration of intravenous contrast. Coronal and sagittal reformatted images provided. This CT exam was performed according to our departmental dose-optimization program, which includes on e or more of the following dose reduction techniques: automated exposure control, adjustment of the m A and/or kV according to patient size, and/or use of iterative reconstruction technique. COMPARISON: Report from the prior exam dated 08/28/2019. Images not provided for comparison. FINDINGS: Previously seen proximal and mid colitis has resolved. There is now moderate diffuse infla mmation of the distal sigmoid and rectum. There is diffuse gaseous distention of the sigmoid colon wi thout volvulus or mechanical obstruction. The proximal and mid colon demonstrates moderate diffuse co nstipation. No pneumatosis, free intraperitoneal air, abscess, or ascites. No gastric or small bowel inflammation. Patchy scarring noted at the lung bases. Scattered low-attenuation lesions in the liver again noted, likely representing cysts. Pancreatic atrophy without focal lesion or inflammation. The biliary tree, gallbladder, spleen, and adrenal glands are normal. Multiple bilateral renal cysts again seen without hydronephrosis or pyelonephritis. Normal urinary bladder. Moderate to severe enlar gement of the prostate. Chronic degenerative changes in the spine without acute fracture. Extensive atherosclerosis without a bdominal aortic aneurysm or retroperitoneal hemorrhage. IMPRESSION: Previously seen proximal and mid colitis has resolved. There is now moderate diffuse inf lammation of the distal sigmoid and rectum. No mechanical bowel obstruction or perforation. Distal co lonic ileus with proximal to mid colonic constipation. Enlarged prostate. Electronically signed by: Katrin Hart MD 09/07/2019 9:58 PM CDT Due to temporary technical issues with the PACS/Fluency reporting system, reports are being signed by the in house radiologist as a courtesy to ensure prompt reporting. The interpreting radiologist is f ully responsible for the content of the report.
--- NOTE | 2019-09-08 10:55 | RAD REPORT ---
EXAM DESCRIPTION: US - Liver Only - 09/08/2019 10:27 am CLINICAL HISTORY: Elevated LFT COMPARISON: CT; Abdomen Pelvis W Contrast 09/07/2019. TECHNIQUE: Sonographic evaluation of the right upper quadrant was performed as a dedicated liver ult rasound study. FINDINGS: No solid mass of the liver. The small probable hemangioma subcapsular dome of the right lo be is not clearly seen on this study. Small cysts are identified. No Doppler abnormality of the dillon l vein. No intrahepatic biliary tree dilatation. Incidental note made of a large cyst in the right ki dney further detailed on an earlier CT study. IMPRESSION: Liver size is normal. No suspicious liver finding identifiable.
[2019-09-08] MEDS: POTASSIUM CL SA 10 MEQ TAB PO SCH (14:00)
[2019-09-08] MEDS: metroNIDAZOLE 500 MG TABLET PO SCH ×2 (14:48→17:31)
[2019-09-08] MEDS: CARVEDILOL 3.125 MG TAB PO SCH ×2 (14:48→20:21)
[2019-09-08] MEDS: DOCUSATE NA 100 MG CAP PO SCH ×2 (14:48→20:21)
[2019-09-08] MEDS: LORATADINE 10 MG TAB PO SCH (14:49)
[2019-09-08] MEDS: MORPHINE 2 MG/ML SYR IV PRN (18:27)
[2019-09-08] MEDS: ACETAMINOPHEN 500 MG TAB PO PRN (20:21)
[2019-09-09] MEDS: metroNIDAZOLE 500 MG TABLET PO SCH ×5 (00:47→23:31)
[2019-09-09] MEDS: NA CHLORIDE 0.9% 1,000 ML IV SCH ×3 (01:07→17:17)
[2019-09-09] MEDS: MORPHINE 2 MG/ML SYR IV PRN ×2 (05:05→14:50)
[2019-09-09 06:05] LABS: Basophils % 0.7 % (0-1.3); Hematocrit 36.7 % (39.6-49.0); Lymphocytes % 11.1 % (15.3-44.8); MPV 7.5 fL (7.6-11.3); RBC Red Blood Cell Count 3.81 M/uL (4.33-5.43)
[2019-09-09 06:15] LABS: ALT/SGPT 126 U/L (12-78); AST/SGOT 109 U/L (15-37); Albumin 2.5 g/dL (3.4-5.0); Alkaline Phosphatase 296 U/L (45-117); BUN Blood Urea Nitrogen 12 mg/dL (7-18); Bicarbonate 23 mmol/L (21-32); Bilirubin Total 0.4 mg/dL (0.2-1.0); Glucose Level 80 mg/dL (74-106); Magnesium 1.9 mg/dL (1.8-2.4); Phosphorus 2.7 mg/dL (2.5-4.9); Potassium 3.6 mmol/L (3.5-5.1); Protein, Total 5.2 g/dL (6.4-8.2); Sodium Level 139 mmol/L (136-145)
[2019-09-09] MEDS: CARVEDILOL 3.125 MG TAB PO SCH ×2 (08:51→21:12)
[2019-09-09] MEDS: LORATADINE 10 MG TAB PO SCH (08:52)
[2019-09-09] MEDS: ENOXAPARIN 40 MG/0.4 ML SQ SCH (08:52)
[2019-09-09] MEDS: POTASSIUM CL SA 10 MEQ TAB PO SCH (08:52)
[2019-09-09] MEDS: DOCUSATE NA 100 MG CAP PO SCH ×2 (08:55→21:34)
[2019-09-09 14:21] LABS: C.diff Antigen/Toxin Ag neg : Tox neg (NEG : NEG)
--- NOTE | 2019-09-09 17:27 | P.PN ---
Subjective Date of Service: 09/09/19 Primary Care Provider: Jena Chief Complaint: Abdominal pain Subjective: Improving Patient came in for abdominal distention. He had no diarrhea, no constipation. No fevers. This is from several memories of the family. Review of Systems 10-point ROS is otherwise unremarkable Gastrointestinal: Distention Physical Examination - Vital Signs Temperature: 98.1 F Blood Pressure: 190/84 Pulse: 69 Respirations: 16 Pulse Ox (%): 95 - Physical Exam General: Alert, In no apparent distress HEENT: Atraumatic, PERRLA, EOMI Neck: Supple, JVD not distended Respiratory: Clear to auscultation bilaterally, Normal air movement Cardiovascular: Regular rate/rhythm, Normal S1 S2 Gastrointestinal: Normal bowel sounds, No tenderness, Distended (less tense than yesterday. ) Musculoskeletal: No tenderness Integumentary: No rashes Neurological: Normal speech, Normal tone, Normal affect Lymphatics: No axilla or inguinal lymphadenopathy Assessment And Plan - Current Problems (Diagnosis) (1) Constipation Current Visit: Yes Status: Acute Plan: Will continue docuste. Get him up and to the chair. Stop CT and expensive consults. Qualifiers: Constipation type: slow transit constipation Qualified Code(s): K59.01 - Slow transit constipation (2) HTN (hypertension) Current Visit: No Status: Acute Plan: Continue home meds Qualifiers: Hypertension type: essential hypertension Qualified Code(s): I10 - Essential (primary) hypertension Discharge Plan: Home Plan to discharge in: 24 Hours - Code Status/Comfort Care Code Status Assessed: No Code Status: Full Code Critical Care: No Time Spent Managing PTS Care (In Minutes): 20
[2019-09-09] MEDS: ACETAMINOPHEN 500 MG TAB PO PRN (21:14)
[2019-09-10] MEDS: NA CHLORIDE 0.9% 1,000 ML IV SCH ×2 (02:40→13:00)
[2019-09-10] MEDS: metroNIDAZOLE 500 MG TABLET PO SCH ×2 (05:17→11:37)
[2019-09-10] MEDS: CARVEDILOL 3.125 MG TAB PO SCH ×2 (08:29→20:41)
[2019-09-10] MEDS: DOCUSATE NA 100 MG CAP PO SCH ×2 (08:30→20:41)
[2019-09-10] MEDS: ENOXAPARIN 40 MG/0.4 ML SQ SCH (08:30)
[2019-09-10] MEDS: POTASSIUM CL SA 10 MEQ TAB PO SCH (08:30)
[2019-09-10] MEDS: LORATADINE 10 MG TAB PO SCH (08:33)
[2019-09-10] MEDS: SIMETHICONE 80 MG TAB PO PRN ×2 (10:57→18:09)
--- NOTE | 2019-09-10 13:29 | P.DS ---
Admission Date: 09/08/19 Discharge Date: 09/10/19 Primary Care Provider: Jena Disposition: ROUTINE DISCHARGE Discharge Condition: GOOD Reason for Admission: Abdominal pain - Problems (1) Constipation Current Visit: Yes Status: Acute Qualifiers: Constipation type: slow transit constipation Qualified Code(s): K59.01 - Slow transit constipation (2) HTN (hypertension) Current Visit: No Status: Acute Qualifiers: Hypertension type: essential hypertension Qualified Code(s): I10 - Essential (primary) hypertension Brief History of Present Illness: Patient admitted for abdominal distention. He has no constipation or diarrhea. He has been admitted for this previously. Hospital Course: Patient had some abdominal distention. His wbc was mildly elevated. Admitted to the floor for observation. His stool studies for blood, bacteria and c dif are all negative. Have had PT worked with him. I have spent time with several members of the family. Discussed coming to the office instead of the ER. He has multiple CT and consults. Mostly improves after a bowel movement. Will send him on meds. Have him follow up in 7 days to discuss his medications. Vital Signs/Physical Exam: Temp Pulse Resp BP Pulse Ox 97.2 F 82 15 129/72 97 09/10/19 08:00 09/10/19 08:29 09/10/19 08:00 09/10/19 08:29 09/10/19 08:00 General: Alert, In no apparent distress HEENT: Atraumatic, PERRLA, EOMI Neck: Supple, JVD not distended Respiratory: Clear to auscultation bilaterally, Normal air movement Cardiovascular: Regular rate/rhythm, Normal S1 S2 Gastrointestinal: Normal bowel sounds, No tenderness Musculoskeletal: No tenderness Integumentary: No rashes Neurological: Normal speech, Normal tone, Normal affect Lymphatics: No axilla or inguinal lymphadenopathy Laboratory Data at Discharge: WBC 8.9 K/uL (4.3-10.9) D 09/09/19 05:46 Hgb 12.5 g/dL (13.6-17.9) L 09/09/19 05:46 Hct 36.7 % (39.6-49.0) L 09/09/19 05:46 Plt Count 234 K/uL (152-406) 09/09/19 05:46 Sodium 139 mmol/L (136-145) 09/09/19 05:46 Potassium 3.6 mmol/L (3.5-5.1) 09/09/19 05:46 BUN 12 mg/dL (7-18) 09/09/19 05:46 Creatinine 0.86 mg/dL (0.55-1.3) 09/09/19 05:46 Glucose 80 mg/dL (74-106) 09/09/19 05:46 Phosphorus 2.7 mg/dL (2.5-4.9) 09/09/19 05:46 Magnesium 1.9 mg/dL (1.8-2.4) 09/09/19 05:46 Total Bilirubin 0.4 mg/dL (0.2-1.0) 09/09/19 05:46 AST 109 U/L (15-37) H D 09/09/19 05:46 ALT 126 U/L (12-78) H 09/09/19 05:46 Alkaline Phosphatase 296 U/L (45-117) H 09/09/19 05:46 Lipase 101 U/L (73-393) 09/07/19 20:00 Home Medications: Carvedilol [Coreg] 3.125 mg PO BID 09/08/19 Hydralazine HCl [Apresoline] 100 mg PO BID 09/08/19 Labetalol HCl [Trandate] 100 mg PO BID 09/08/19 Loratadine [Claritin] 10 mg PO DAILY 09/08/19 Potassium Oral Tab [Klor-Con 10 mEq Tab] 10 meq PO DAILY 09/08/19 Spironolactone [Aldactone] 25 mg PO DAILY 09/08/19 metroNIDAZOLE [Flagyl] 500 mg PO Q8H 09/08/19 Docusate [Colace Cap*] 100 mg PO DAILY PRN 30 Days #20 cap 09/10/19 Simethicone 80 mg PO Q12HP PRN 30 Days #20 tab.chew 09/10/19 New Medications: Docusate [Colace Cap*] 100 mg PO DAILY PRN 30 Days #20 cap PRN Reason: Constipation Simethicone 80 mg PO Q12HP PRN 30 Days #20 tab.chew PRN Reason: Gas Diet: Regular Followup: Dano Bella MD [Primary Care Provider] - 1 Week Time spent managing pt's care (in minutes): 25
[2019-09-11 07:59] VITALS: O2SAT 94
[2019-09-11] MEDS: LORATADINE 10 MG TAB PO SCH (08:51)
[2019-09-11] MEDS: ENOXAPARIN 40 MG/0.4 ML SQ SCH (08:51)
[2019-09-11] MEDS: DOCUSATE NA 100 MG CAP PO SCH (08:51)
[2019-09-11] MEDS: CARVEDILOL 3.125 MG TAB PO SCH (08:51)
[2019-09-11] MEDS: POTASSIUM CL SA 10 MEQ TAB PO SCH (08:56)
--- NOTE | 2019-09-11 10:29 | P.PN ---
Subjective Date of Service: 09/11/19 Primary Care Provider: Jena Chief Complaint: Abdominal pain Patient came in for abdominal distention. He had no diarrhea, no constipation. No fevers. This is from several members of the family. His discharged was held for care home referal. Will see if he is accepted. Review of Systems 10-point ROS is otherwise unremarkable Physical Examination - Vital Signs Temperature: 97.7 F Blood Pressure: 177/95 Pulse: 84 Respirations: 16 Pulse Ox (%): 95 - Physical Exam General: Demented HEENT: Atraumatic, PERRLA, EOMI Neck: Supple, JVD not distended Respiratory: Clear to auscultation bilaterally, Normal air movement Cardiovascular: Regular rate/rhythm, Normal S1 S2 Gastrointestinal: Normal bowel sounds, No tenderness Musculoskeletal: No tenderness Integumentary: No rashes Neurological: Normal speech, Normal tone, Normal affect Lymphatics: No axilla or inguinal lymphadenopathy Assessment & Plan - Problems (Diagnosis) (1) Constipation Current Visit: Yes Status: Acute Plan: Will continue docuste. Get him up and to the chair. Stop CT and expensive consults. Qualifiers: Constipation type: slow transit constipation Qualified Code(s): K59.01 - Slow transit constipation (2) HTN (hypertension) Current Visit: No Status: Acute Plan: Continue home meds Qualifiers: Hypertension type: essential hypertension Qualified Code(s): I10 - Essential (primary) hypertension Discharge Plan: Intermediate Plan to discharge in: 24 Hours - Code Status/Comfort Care Code Status Assessed: No Physician Review: Patient Assessed, Agree with Above Assessment and Plan Critical Care: No Time Spent Managing Pts Care (In Minutes): 20
[2019-09-11 13:19] VITALS: BP 136/81; TEMP 98
== END 2019-09-11 15:20 | disposition home or self-care (01) | DRG 392 ==
LOC: ER 18:39 → ERHOLD 09-08 00:19 → 2ND 09-08 00:39
PROVIDERS: ADMIT Internal Medicine; ATTEND Internal Medicine
DX: K59.01 Slow transit constipation (principal); I69.354 Hemiplegia and hemiparesis following cerebral infarction affecting left non-dominant side; I10 Essential (primary) hypertension; F03.90 Unspecified dementia, unspecified severity, without behavioral disturbance, psychotic disturbance, mood disturbance, and anxiety; Z86.718 Personal history of other venous thrombosis and embolism; E11.9 Type 2 diabetes mellitus without complications
CPT/HCPCS: 36415; 74177; 76705; 80048; 80053; 80076; 81003; 82274; 82962; 83690; 83735; 84100; 85025; 87045; 87046; 87177; 87209; 87324; 87449; 89055; 94760; 96365; 96366; 96368; 96375; 97110; 97112; 97161; 97530; 99285; J0696; J1650; J2270; J2405; J2543; J7030; Q9967

== ENCOUNTER 2019-10-20 11:25 | Inpatient (IN) | payer OTHER ==
--- OUTSIDE RECORDS SUMMARY | 2019-10-20 11:40 | XMS REPORT ---
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
--- OUTSIDE RECORDS SUMMARY | 2019-10-20 11:41 | XMS REPORT ---
[...] managed as type 2 E10.9 Active Medications No Known Medications Results No Known Results Summary Purpose [employer] Submission
[2019-10-20] MEDS ORDERED: FAMOTIDINE 20 MG/2 ML VIAL IV ONE (11:54)
[2019-10-20] MEDS ORDERED: ONDANSETRON 4 MG/2 ML VIAL ONE ×2 (11:54→16:46)
[2019-10-20 12:14] LABS: Absolute Lymphocytes (CBC) 0.5 K/uL (0.7-4.9); Basophils % 0.2 % (0-1.3); Hematocrit 38.2 % (39.6-49.0); Lymphocytes % 4.7 % (15.3-44.8); MPV 8.4 fL (7.6-11.3); RBC Red Blood Cell Count 3.91 M/uL (4.33-5.43)
[2019-10-20 12:18] LABS: Protime INR 1.17
[2019-10-20 12:50] LABS: ALT/SGPT 18 U/L (12-78); AST/SGOT 12 U/L (15-37); Albumin 2.2 g/dL (3.4-5.0); Alkaline Phosphatase 66 U/L (45-117); BUN Blood Urea Nitrogen 44 mg/dL (7-18); Bicarbonate 22 mmol/L (21-32); Bilirubin Direct 0.2 mg/dL (0-0.2); Bilirubin Total 0.4 mg/dL (0.2-1.0); Glucose Level 136 mg/dL (74-106); Lipase 29 U/L (73-393); Magnesium 2.3 mg/dL (1.8-2.4); NT PRO-BNP 334 pg/mL (<450); Potassium 3.9 mmol/L (3.5-5.1); Protein, Total 5.1 g/dL (6.4-8.2); Sodium Level 139 mmol/L (136-145); Troponin (Emerg Dept Use Only) < 0.02 ng/mL (0.0-0.045)
--- NOTE | 2019-10-20 13:17 | RAD REPORT ---
EXAM DESCRIPTION: RAD - Chest Single View - 10/20/2019 1:07 pm CLINICAL HISTORY: COUGH Chest pain. COMPARISON: CHEST SINGLE VIEW dated 07/14/2015; CHEST SINGLE VIEW dated 01/11/2013 FINDINGS: Portable technique limits examination quality. Mild interstitial prominence is present, greater on the left, which may represent asymmetric pulmonar y edema or sequelae of pneumonitis/bronchitis. The heart is upper limit of normal in size with a tort uous thoracic aorta. No displaced fractures.
--- NOTE | 2019-10-20 13:19 | RAD REPORT ---
EXAM DESCRIPTION: RAD - Abdomen W Erect - 10/20/2019 1:13 pm CLINICAL HISTORY: Abdominal distention;Abd pain Pain COMPARISON: Abdomen Pelvis W Contrast dated 09/07/2019; Liver Only dated 09/08/2019 FINDINGS: Large and small bowel distention is present in a relatively non-organized pattern probably representing a mild diffuse adynamic ileus. No evidence of pneumoperitoneum. No pathologic calcifica tions.
[2019-10-20] MEDS ORDERED: METRONIDAZOLE 500mg IVPB 500 MG/100 ML BAG IV ONE (13:40)
[2019-10-20] MEDS ORDERED: NA CHLORIDE 0.9% 1,000 ML ONE (13:40)
[2019-10-20] MEDS ORDERED: CIPROFLOXACIN 400mg IV 400 MG/200 ML BAG IV ONE (13:40)
--- NOTE | 2019-10-20 13:40 | ER ---
Nurse's Notes [facility] Name: Mahendra St Sr Age: 88 yrs Sex: Male : 1930 Arrival Date: 10/20/2019 Time: 11:29 Bed 4 Private MD: Diagnosis: Abdominal tenderness;Ileus, unspecified-large and small bowel;Volume depletion;Unspecified kidney failure;Type 2 diabetes mellitus;Left sided colitis-mild Presentation: 10/20 11:31 Presenting complaint: Patient states: diarrhea, abd pain since Saturday, daughter iw reported a higher temp than usual, pt A\T\OX3, hx of CVA with left sided paralysis. Transition of care: patient was not received from another setting of care. Onset of symptoms was October 18, 2019. Risk Assessment: Do you want to hurt yourself or someone else? Patient reports no desire to harm self or others. Initial Sepsis Screen: Does the patient meet any 2 criteria? No. Patient's initial sepsis screen is negative. Does the patient have a suspected source of infection? No. Patient's initial sepsis screen is negative. 11:31 Method Of Arrival: EMS: [facility] iw 11:31 Acuity: JACLYN 3 iw 11:37 Care prior to arrival: Medication(s) given: Normal saline infusion, IV initiated. 20 iw GA, in the right hand, Glucose check: 205. 11:54 Note daughter also reported pt has foul smelling urine. iw Historical: - Allergies: 11:34 NKA; iw - Home Meds: 11:34 spironolactone 50 mg Oral tab 1 tab once daily [Active]; hydrochlorothiazide 25 mg Oral iw tab 1 tab 2 times per day [Active]; labetalol 100 mg Oral tab 1 tab 2 times per day [Active]; carvedilol 6.25 mg Oral tab 1 tab 2 times per day [Active]; Klor-Con 10 10 mEq Oral TbER 1 tab 2 times per day [Active]; lisinopril 40 mg Oral tab 1 tab once daily [Active]; - PMHx: 11:34 CVA; Diabetes - NIDDM; DVT; Hypertension; L sided paralysis post CVA; iw - PSHx: 11:34 neck surgery; iw - Immunization history:: Adult Immunizations not up to date. - Social history:: Smoking status: Patient/guardian denies using tobacco. - Ebola Screening: : Patient negative for fever greater than or equal to 101.5 degrees Fahrenheit, and additional compatible Ebola Virus Disease symptoms Patient denies exposure to infectious person Patient denies travel to an Ebola-affected area in the 21 days before illness onset No symptoms or risks identified at this time. - Family history:: not pertinent. Screenin:45 Abuse screen: No signs of abuse noted. Nutritional screening: No deficits noted. aa5 Tuberculosis screening: No symptoms or risk factors identified. Fall Risk Secondary diagnosis (15 points) impaired mobility, CVA, IV access (20 points). Mental Status- Overestimates/Forgets Limitations (15 pts.). Total Vera Fall Scale indicates High Risk Score (45 or more points). Fall prevention measures have been instituted. Side Rails Up X 2 Placed Close to Nursing Station Family Present and informed to notify staff if the need to leave the bedside. Assessment: 11:45 General: Appears comfortable, Behavior is calm, cooperative. Pain: Complains of pain in aa5 right lower quadrant Pain does not radiate. Pain began 2-3 days ago. Is continuous. 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 Cardiovascular: Heart tones S1 S2 present Rhythm is regular. Respiratory: Airway is patent Respiratory effort is even, unlabored, Respiratory pattern is regular, symmetrical. GI: Abdomen is round Bowel sounds present X 4 quads. Abdomen is tender to palpation in right lower quadrant Reports diarrhea, nausea, vomiting, since Saturday. : Brief noted. EENT: No signs and/or symptoms were reported regarding the EENT system. Derm: Skin is dry, Skin is normal, Skin temperature is warm. 12:30 Reassessment: Pt awake, equal and unlabored respirations, skin is normal/warm/dry. Pt's aa5 family at bedside. . 13:25 Reassessment: Pt cleaned of urinary incontinence and stool. Soft brown stool noted, aa5 clean brief applied. . 13:25 Reassessment: Pt awake, lying down in bed. Pt's and daughter at bedside. Equal and aa5 unlabored respirations, skin is normal/warm/dry. . 13:28 Reassessment: Assisted with urine specimen collection, oskar colored urine noted. . aa5 13:35 Reassessment: Pt completed CT oral contrast, CT notified. . aa5 13:38 Reassessment: Pt now resting in bed with eyes closed, equal and unlabored respirations, aa5 skin is normal/warm/dry. Pt's at bedside. . 14:48 Reassessment: Pt taken to CT via stretcher . aa5 14:48 Neuro: Level of Consciousness is awake, obeys commands, Oriented to person, place, aa5 situation. Respiratory: Airway is patent Respiratory effort is even, unlabored, Respiratory pattern is regular, symmetrical. Derm: Skin is dry, Skin is normal, Skin temperature is warm. 15:45 Reassessment: Pt cleaned of incontinence, watery brown stool noted, clean brief aa5 applied. Dr. Bella at bedside speaking to family . 15:50 Reassessment: Pt resting in bed with eyes closed, respirations even and unlabored, skin aa5 is pink/warm/dry. Pt's family at bedside. Awaiting room assignment. . 16:58 Reassessment: Pt cleaned, very small amount of soft watery brown stool noted, clean aa5 brief applied. . 16:59 Reassessment: Pt c/o increasing abd pain, MD was notified. . aa5 17:15 Reassessment: Pt states feeling better, abd pain has improved. . Neuro: Level of aa5 Consciousness is awake, obeys commands, Oriented to person, place, situation. Respiratory: Airway is patent Respiratory effort is even, unlabored, Respiratory pattern is regular, symmetrical. Derm: Skin is dry, Skin is normal, Skin temperature is warm. Vital Signs: 11:35 BP 119 / 69; Pulse 98; Resp 16 S; Temp 98.2(TE); Pulse Ox 94% on R/A; Weight 95.25 kg; iw 12:28 Pulse Ox 93% on R/A; aa5 12:30 BP 119 / 78; Pulse 98; Resp 16 S; Pulse Ox 98% on 2 lpm NC; aa5 13:00 BP 161 / 91; Pulse 97; Resp 18 S; Pulse Ox 97% on 2 lpm NC; aa5 13:55 BP 143 / 95; Pulse 97; Resp 18 S; Temp 98.0(TE); Pulse Ox 97% on 2 lpm NC; aa5 14:30 BP 147 / 91; Pulse 92; Resp 16 S; Pulse Ox 97% on 2 lpm NC; aa5 15:57 BP 147 / 83; Pulse 90; Resp 13 S; Pulse Ox 96% on 2 lpm NC; aa5 17:00 BP 143 / 90; Pulse 91; Resp 16 S; Temp 98.4(TE); Pulse Ox 98% on 2 lpm NC; aa5 17:15 BP 129 / 82; Pulse 93; Resp 18 S; Pulse Ox 98% on 2 lpm NC; aa5 ED Course: 11:29 Patient arrived in ED. iw 11:33 Triage completed. iw 11:35 Arm band placed on. iw 11:37 Maintain EMS IV. Dressing intact. Good blood return noted. Site clean \T\ dry. Gauge \T\ iw site: 20 right hand. 11:45 Patient has correct armband on for positive identification. Bed in low position. Call aa5 light in reach. Side rails up X2. Adult w/ patient. air sampling and monitoring on. Pulse ox on. NIBP on. 11:47 Delroy Thomas MD is Attending Physician. davey 11:49 Abby Kaplan RN is Primary Nurse. aa5 12:00 Initial lab(s) drawn, by ca, sent to lab. Inserted saline lock: 20 gauge in right aa5 antecubital area, using aseptic technique. Blood collected. 12:13 EKG done, by technician assistant. reviewed by Delroy Thomas MD. sm3 13:08 XRAY Chest (1 view) In Process Unspecified. EDMS 13:13 Abdomen with Erect XRAY In Process Unspecified. EDMS 13:37 Dano Bella MD is Hospitalizing Provider. davey 17:02 No provider procedures requiring assistance completed. Patient admitted, IV remains in aa5 place. Administered Medications: 12:15 Drug: Zofran 4 mg Route: IVP; Site: right hand; la1 12:25 Follow up: Response: No adverse reaction aa5 12:17 Drug: Pepcid 20 mg Route: IVP; Site: right hand; la1 12:25 Follow up: Response: No adverse reaction aa5 12:18 Drug: NS 0.9% 1000 ml Route: IV; Rate: 125 ml/hr; Site: right hand; la1 16:00 Follow up: IV Status: Infusion continued upon admission aa5 13:45 Drug: Flagyl 500 mg Volume: 100 ml; Route: IVPB; Rate: 200 ml/hr; Infused Over: 30 aa5 mins; Site: right hand; 14:01 Follow up: Response: No adverse reaction aa5 14:15 Follow up: IV Status: Completed infusion aa5 13:45 Drug: NS 0.9% 1000 ml Route: IV; Rate: 1 bolus; Site: right hand; aa5 15:00 Follow up: IV Status: Completed infusion; IV Intake: 1000ml jl7 14:20 Drug: Cipro 400 mg Volume: 200 ml; Route: IVPB; Infused Over: 60 mins; Site: right hand;aa5 15:20 Follow up: Response: No adverse reaction; IV Status: Completed infusion jl7 17:00 Drug: Zofran 4 mg Route: IVP; Site: right hand; aa5 17:03 Follow up: Response: No adverse reaction aa5 17:00 Drug: morphine 2 mg Route: IVP; Site: right hand; aa5 17:03 Follow up: Response: No adverse reaction aa5 17:01 CANCELLED (Physician Discretion): morphine 2 mg IVP once; (PAIN>8) RASS on ADMN: aa5 Combtv4, Very Agttd3, Agttd2, Rstlss1, AlertClm0, Drwsy-1, LtSdtn-2, ModSdtn-3, DpSdtn-4, UnArsble-5 x2 Intake: 15:00 IV: 1000ml; Total: 1000ml. jl7 Outcome: 13:39 Decision to Hospitalize by Provider. davey 17:02 Admitted to Med/surg accompanied by tech, family with patient, via stretcher, with aa5 oxygen, with chart, Report called to RENU Hammer 17:02 Condition: stable 17:02 Discharge instructions given to patient, family, Instructed on the need for admit, Demonstrated understanding of instructions. 17:17 Patient left the ED. aa5 Signatures: Dispatcher [employer] EDMS Delroy Thomas MD MD cha Williams, Irene, RN RN iw Calderon, Audri, RN RN aa5 Spike Lofton RN RN la1 Kylie Acuña RN RN jl7 Marjorie Robin 3 Corrections: (The following items were deleted from the chart) 11:38 11:31 Care prior to arrival: None. [facility] 16:06 13:28 Reassessment: Assisted with urine specimen collection. . 5 : 12:30 BP 119 / 78; Pulse 98bpm; Resp 16bpm; Spontaneous; Pulse Ox 98% RA; [facility] : 13:00 BP 161 / 91; Pulse 97bpm; Resp 18bpm; Spontaneous; Pulse Ox 97% RA; [facility] : 13:55 BP 143 / 95; Pulse 97bpm; Resp 18bpm; Spontaneous; Pulse Ox 97% RA; [facility] : 15:57 BP 147 / 83; Pulse 90bpm; Resp 13bpm; Spontaneous; Pulse Ox 96% RA; 7 aa5 17: 14:30 BP 147 / 91; Pulse 92bpm; Resp 16bpm; Spontaneous; Pulse Ox 97% RA; [facility] aa5
--- NOTE | 2019-10-20 13:41 | EDPHYS ---
Physician Documentation [facility] Name: Mahendra St Sr Age: 88 yrs Sex: Male : 1930 Arrival Date: 10/20/2019 Time: :29 Bed 4 Private MD: ED Physician Delroy Thomas HPI: 10/20 13:32 This 88 yrs old Black Male presents to ER via EMS with complaints of Abdominal Pain, davey Diarrhea. 13:32 The patient presents to the emergency department with nausea, vomiting, diarrhea, davey abdominal pain, of the right upper quadrant, left upper quadrant, right lower quadrant and left lower quadrant. Onset: The symptoms/episode began/occurred 2 day(s) ago. Possible causes: unknown. The symptoms are aggravated by pressure, food , The symptoms are alleviated by remaining still. Associated signs and symptoms: Pertinent positives: abdominal pain, diarrhea, nausea, vomiting. Severity of symptoms: At their worst the symptoms were moderate in the emergency department the symptoms have improved mildly. The patient has not experienced similar symptoms in the past. Historical: - Allergies: 11:34 NKA; iw - Home Meds: 11:34 spironolactone 50 mg Oral tab 1 tab once daily [Active]; hydrochlorothiazide 25 mg Oral iw tab 1 tab 2 times per day [Active]; labetalol 100 mg Oral tab 1 tab 2 times per day [Active]; carvedilol 6.25 mg Oral tab 1 tab 2 times per day [Active]; Klor-Con 10 10 mEq Oral TbER 1 tab 2 times per day [Active]; lisinopril 40 mg Oral tab 1 tab once daily [Active]; - PMHx: 11:34 CVA; Diabetes - NIDDM; DVT; Hypertension; L sided paralysis post CVA; iw - PSHx: 11:34 neck surgery; iw - Immunization history:: Adult Immunizations not up to date. - Social history:: Smoking status: Patient/guardian denies using tobacco. - Ebola Screening: : Patient negative for fever greater than or equal to 101.5 degrees Fahrenheit, and additional compatible Ebola Virus Disease symptoms Patient denies exposure to infectious person Patient denies travel to an Ebola-affected area in the 21 days before illness onset No symptoms or risks identified at this time. - Family history:: not pertinent. ROS: 13:32 Constitutional: Negative for fever, chills, and weight loss, Eyes: Negative for injury, davey pain, redness, and discharge, ENT: Negative for injury, pain, and discharge, Neck: Negative for injury, pain, and swelling, Cardiovascular: Negative for chest pain, palpitations, and edema, Respiratory: Negative for shortness of breath, cough, wheezing, and pleuritic chest pain, Back: Negative for injury and pain, : Negative for injury, bleeding, discharge, and swelling, MS/Extremity: Negative for injury and deformity, Skin: Negative for injury, rash, and discoloration, Neuro: Negative for headache, weakness, numbness, tingling, and seizure, Psych: Negative for depression, anxiety, suicide ideation, homicidal ideation, and hallucinations, Allergy/Immunology: Negative for hives, rash, and allergies, Endocrine: Negative for neck swelling, polydipsia, polyuria, polyphagia, and marked weight changes, Hematologic/Lymphatic: Negative for swollen nodes, abnormal bleeding, and unusual bruising. 13:32 Abdomen/GI: Positive for abdominal pain, nausea and vomiting, nausea, vomiting, and diarrhea, nausea, vomiting, diarrhea, abdominal distension. Exam: 13:32 Constitutional: This is a well developed, well nourished patient who is awake, alert, davey and in no acute distress. Head/Face: Normocephalic, atraumatic. Eyes: Pupils equal round and reactive to light, extra-ocular motions intact. Lids and lashes normal. Conjunctiva and sclera are non-icteric and not injected. Cornea within normal limits. Periorbital areas with no swelling, redness, or edema. ENT: Nares patent. No nasal discharge, no septal abnormalities noted. Tympanic membranes are normal and external auditory canals are clear. Oropharynx with no redness, swelling, or masses, exudates, or evidence of obstruction, uvula midline. Mucous membranes moist. Neck: Trachea midline, no thyromegaly or masses palpated, and no cervical lymphadenopathy. Supple, full range of motion without nuchal rigidity, or vertebral point tenderness. No Meningismus. Chest/axilla: Normal chest wall appearance and motion. Nontender with no deformity. No lesions are appreciated. Cardiovascular: Regular rate and rhythm with a normal S1 and S2. No gallops, murmurs, or rubs. Normal PMI, no JVD. No pulse deficits. Respiratory: Lungs have equal breath sounds bilaterally, clear to auscultation and percussion. No rales, rhonchi or wheezes noted. No increased work of breathing, no retractions or nasal flaring. Back: No spinal tenderness. No costovertebral tenderness. Full range of motion. Male : Normal genitalia with no discharge or lesions. Skin: Warm, dry with normal turgor. Normal color with no rashes, no lesions, and no evidence of cellulitis. MS/ Extremity: Pulses equal, no cyanosis. Neurovascular intact. Full, normal range of motion. Neuro: Awake and alert, GCS 15, oriented to person, place, time, and situation. Cranial nerves II-XII grossly intact. Motor strength 5/5 in all extremities. Sensory grossly intact. Cerebellar exam normal. Normal gait. Psych: Awake, alert, with orientation to person, place and time. Behavior, mood, and affect are within normal limits. 13:32 Abdomen/GI: Inspection: distension, Bowel sounds: high pitched, Palpation: mild abdominal tenderness, in all quadrants, Liver: no appreciated palpable abnormalities, Hernia: not appreciated. Vital Signs: 11:35 BP 119 / 69; Pulse 98; Resp 16 S; Temp 98.2(TE); Pulse Ox 94% on R/A; Weight 95.25 kg; iw 12:28 Pulse Ox 93% on R/A; aa5 12:30 BP 119 / 78; Pulse 98; Resp 16 S; Pulse Ox 98% on 2 lpm NC; aa5 13:00 BP 161 / 91; Pulse 97; Resp 18 S; Pulse Ox 97% on 2 lpm NC; aa5 13:55 BP 143 / 95; Pulse 97; Resp 18 S; Temp 98.0(TE); Pulse Ox 97% on 2 lpm NC; aa5 14:30 BP 147 / 91; Pulse 92; Resp 16 S; Pulse Ox 97% on 2 lpm NC; aa5 15:57 BP 147 / 83; Pulse 90; Resp 13 S; Pulse Ox 96% on 2 lpm NC; aa5 17:00 BP 143 / 90; Pulse 91; Resp 16 S; Temp 98.4(TE); Pulse Ox 98% on 2 lpm NC; aa5 17:15 BP 129 / 82; Pulse 93; Resp 18 S; Pulse Ox 98% on 2 lpm NC; aa5 MDM: 11:47 Patient medically screened. [facility] 13:36 Data reviewed: vital signs, nurses notes, lab test result(s), EKG, radiologic studies, [facility] CT scan, plain films. 10/20 11:50 Order name: Basic Metabolic Panel; Complete Time: 13:21 [facility] 10/20 11:50 Order name: CBC with Diff; Complete Time: 13:21 [facility] 10/20 11:50 Order name: LFT's; Complete Time: 13:21 [facility] 10/20 11:50 Order name: Magnesium; Complete Time: 13:21 [facility] 10/20 11:50 Order name: NT PRO-BNP; Complete Time: 13:21 [facility] 10/20 11:50 Order name: PT-INR; Complete Time: 13:21 [facility] 10/20 11:50 Order name: Troponin (emerg Dept Use Only); Complete Time: 13:21 [facility] 10/20 11:50 Order name: XRAY Chest (1 view); Complete Time: 13:21 [facility] 10/20 11:50 Order name: Lipase; Complete Time: 13:21 [facility] 10/20 11:50 Order name: Stool Culture [facility] 10/20 11:50 Order name: Fecal Leukocyte Stain [facility] 10/20 11:50 Order name: Abdomen with Erect XRAY; Complete Time: 13:21 [facility] 10/20 11:55 Order name: Urine Culture [facility] 10/20 13:43 Order name: Urine Dipstick--Ancillary (enter results) 10/20 11:50 Order name: EKG; Complete Time: 11:54 [facility] 10/20 11:50 Order name: Cardiac monitoring; Complete Time: 12:19 [facility] 10/20 11:50 Order name: EKG - Nurse/Tech; Complete Time: 12:19 [facility] 10/20 11:50 Order name: IV Saline Lock; Complete Time: 12:19 [facility] 10/20 13:25 Order name: Abdomen ; Complete Time: 15:52 [facility] 10/20 13:46 Order name: CONS Physician Consult [facility] 10/20 11:50 Order name: Labs collected and sent; Complete Time: 12:19 [facility] 10/20 11:50 Order name: O2 Per Protocol; Complete Time: 12:19 [facility] 10/20 11:50 Order name: O2 Sat Monitoring; Complete Time: 12:19 [facility] 10/20 11:55 Order name: Urine Dipstick-Ancillary (obtain specimen); Complete Time: 13:35 [facility] Administered Medications: 12:15 Drug: Zofran 4 mg Route: IVP; Site: right hand; la1 12:25 Follow up: Response: No adverse reaction aa5 12:17 Drug: Pepcid 20 mg Route: IVP; Site: right hand; la1 12:25 Follow up: Response: No adverse reaction aa5 12:18 Drug: NS 0.9% 1000 ml Route: IV; Rate: 125 ml/hr; Site: right hand; la1 16:00 Follow up: IV Status: Infusion continued upon admission aa5 13:45 Drug: Flagyl 500 mg Volume: 100 ml; Route: IVPB; Rate: 200 ml/hr; Infused Over: 30 aa5 mins; Site: right hand; 14:01 Follow up: Response: No adverse reaction aa5 14:15 Follow up: IV Status: Completed infusion aa5 13:45 Drug: NS 0.9% 1000 ml Route: IV; Rate: 1 bolus; Site: right hand; aa5 15:00 Follow up: IV Status: Completed infusion; IV Intake: 1000ml jl7 14:20 Drug: Cipro 400 mg Volume: 200 ml; Route: IVPB; Infused Over: 60 mins; Site: right hand;aa5 15:20 Follow up: Response: No adverse reaction; IV Status: Completed infusion jl7 17:00 Drug: Zofran 4 mg Route: IVP; Site: right hand; aa5 17:03 Follow up: Response: No adverse reaction aa5 17:00 Drug: morphine 2 mg Route: IVP; Site: right hand; aa5 17:03 Follow up: Response: No adverse reaction aa5 17:01 CANCELLED (Physician Discretion): morphine 2 mg IVP once; (PAIN>8) RASS on ADMN: aa5 Combtv4, Very Agttd3, Agttd2, Rstlss1, AlertClm0, Drwsy-1, LtSdtn-2, ModSdtn-3, DpSdtn-4, UnArsble-5 x2 Disposition: 10/20/19 13:39 Hospitalization ordered by Dano Bella for Inpatient Admission. Preliminary diagnosis are Abdominal tenderness, Ileus, unspecified - large and small bowel, Volume depletion, Unspecified kidney failure, Type 2 diabetes mellitus, Left sided colitis - mild. - Bed requested for Telemetry/MedSurg (Inpatient). - Status is Inpatient Admission. aa5 - Condition is Fair. - Problem is new. - Symptoms have improved. UTI on Admission? No Signatures: Dispatcher [employer] [facility] Ita Nath RN RN dw Anderson, Corey, MD MD cha Williams, Irene, RN RN iw Abby Kaplan RN RN aa5 Spike Lofton RN RN la1 Kylie Acuña RN jl7 Corrections: (The following items were deleted from the chart) 13:25 13:23 Abdomen Pelvis W Con+CT.RAD.BRZ ordered. [facility] 15:53 13:39 Hospitalization Ordered by Dano Bella MD for Inpatient Admission. Preliminary [facility] diagnosis is Abdominal tenderness; Ileus, unspecified - large and small bowel; Volume depletion; Unspecified kidney failure; Type 2 diabetes mellitus. Bed requested for Telemetry/MedSurg (Inpatient). Status is Inpatient Admission. Condition is Fair. Problem is new. Symptoms have improved. UTI on Admission? No. davey 16:12 15:53 10/20/2019 13:39 Hospitalization Ordered by Dano Bella MD for Inpatient dw Admission. Preliminary diagnosis is Abdominal tenderness; Ileus, unspecified - large and small bowel; Volume depletion; Unspecified kidney failure; Type 2 diabetes mellitus; Left sided colitis - mild. Bed requested for Telemetry/MedSurg (Inpatient). Status is Inpatient Admission. Condition is Fair. Problem is new. Symptoms have improved. UTI on Admission? No. davey 17:01 17:00 morphine 2 mg IVP once; (PAIN>8) RASS on ADMN: Combtv4, Very Agttd3, Agttd2, aa5 Rstlss1, AlertClm0, Drwsy-1, LtSdtn-2, ModSdtn-3, DpSdtn-4, UnArsble-5 x2 ordered. aa5 17:17 16:12 10/20/2019 13:39 Hospitalization Ordered by Dano Bella MD for Inpatient aa5 Admission. Preliminary diagnosis is Abdominal tenderness; Ileus, unspecified - large and small bowel; Volume depletion; Unspecified kidney failure; Type 2 diabetes mellitus; Left sided colitis - mild. Bed requested for Telemetry/MedSurg (Inpatient). Status is Inpatient Admission. Condition is Fair. Problem is new. Symptoms have improved. UTI on Admission? No. dw
[2019-10-20] MEDS ORDERED: GLUCAGON 1 MG/VIAL IM PRN (13:49)
[2019-10-20] MEDS ORDERED: D50W 25 GM/50 ML SYRINGE/VIAL IV PRN (13:49)
--- NOTE | 2019-10-20 15:12 | RAD REPORT ---
EXAM DESCRIPTION: CT - Abdomen Pelvis Wo Contrast - 10/20/2019 2:58 pm CLINICAL HISTORY: ABD PAIN COMPARISON: Abdomen Pelvis W Contrast dated 09/07/2019; Abdomen Pelvis W Contrast dated 9; Abdomen Pelvis W Contrast dated 02/24/2018 TECHNIQUE: Axial [address] imaging of the abdomen and pelvis was performed without IV contrast. No IV contrast was given because of allergy, abnormal renal function, patient refusal or physician re quest. Oral contrast given. All CT scans are performed using dose optimization technique as appropriate and may include automated exposure control or mA/KV adjustment according to patient size. FINDINGS: Patchy airspace opacities present in the posterior gutter. This is more likely atelectasis than pneumonia. No pleural effusion. Liver assessment is limited in the absence of IV contrast. Multiple liver cysts are present not clear ly different from comparison. No spleen or pancreas acute finding. Gallbladder and biliary tree are a lso without suspicious finding. No hydronephrosis or suspicious renal mass. Multiple bilateral renal cysts are present including a la rge 10 centimeter cyst lower pole right kidney. No significant adrenal finding. Isodense renal masses and pyelonephritis cannot be excluded in the absence of IV contrast. The urinary bladder is without significant finding. Small hiatal hernia is present. No gastric dilatation or wall thickening. Stomach is mostly decompres sed. No small bowel dilatation. Right-side of the colon is normal size. Patient has a very tortuous and redundant sigmoid colon exten ding into the upper abdomen. There is wall thickening of the sigmoid colon and rectum. This is a nons pecific colitis pattern. Patient does not have a significant diverticulosis pattern. No free air, free fluid or inflammatory stranding. No mass or bulky lymphadenopathy. No large herni a defects seen. Advanced bony degenerative changes are present along with prominent disc degenerative change. An acut e or pathologic bone process is not identified. IMPRESSION: Nonspecific colitis pattern involving the rectum and tortuous/redundant sigmoid colon. No obstruction, free air or surgically emergent finding. Full assessment is limited is the absence of IV contrast.
[2019-10-20] MEDS ORDERED: ONDANSETRON 4 MG/2 ML VIAL IV PRN ×2 (15:27→17:18)
--- NOTE | 2019-10-20 15:36 | P.HP ---
Certification for Inpatient Patient admitted to: Observation With expected LOS: <2 Midnights Patient will require the following post-hospital care: Home Health Services Practitioner: I am a practitioner with admitting privileges, knowledge of patient current condition, hospital course, and medical plan of care. Services: Services provided to patient in accordance with Admission requirements found in Title 42 Section 412.3 of the Code of Federal Regulations Patient History Date of Service: 10/20/19 Primary Care Provider: Jena Reason for admission: intractable diarrhea History of Present Illness: Patient is well known to me. The patient has a history of bowel problems. He is usually constipated. However he was going for ride with his family this past Saturday. Threw up 3 times. They took him home and he was having diarrhea this time. No family members are having similar symptoms. They were told to come to the ER. He has normal labs. The CT does not show anything alarming. His creatine is elevated at 1.7(His baseline is 0.8-0.9) He still complaint of stomach pain. However her has normal vitals. Otherwise stable. Allergies No Known Drug Allergies Allergy (Unknown, Verified 08/06/15 10:10) Unknown No Known Allergies Allergy (Uncoded 02/24/18 21:37) Unknown Home Medications: Hydralazine HCl [Apresoline] 100 mg PO BID 09/08/19 Labetalol HCl [Trandate] 100 mg PO BID 09/08/19 Loratadine [Claritin] 10 mg PO DAILY 09/08/19 Potassium Oral Tab [Klor-Con 10 mEq Tab] 10 meq PO DAILY 09/08/19 Spironolactone [Aldactone] 25 mg PO DAILY 09/08/19 carvediloL [Coreg] 3.125 mg PO BID 09/08/19 metroNIDAZOLE [Flagyl] 500 mg PO Q8H 09/08/19 Docusate [Colace Cap*] 100 mg PO DAILY PRN 30 Days #20 cap 09/10/19 Simethicone 80 mg PO Q12HP PRN 30 Days #20 tab.chew 09/10/19 - Past Medical/Surgical History Diabetic: Yes -: htn -: hx of dvt -: DM - NIDDM -: Dementia -: History of CVA with right-sided weakness -: neck surgery - Family History Father -: Hypertension Brother -: Hypertension, Diabetes - Social History Alcohol use: No CD- Drugs: No Caffeine use: Yes Review of Systems 10-point ROS is otherwise unremarkable Gastrointestinal: Vomiting, Abdominal Pain, Diarrhea Physical Examination - Physical Exam General: Alert, In no apparent distress HEENT: Atraumatic, PERRLA, Mucous membr. moist/pink, EOMI, Sclerae nonicteric Neck: Supple, 2+ carotid pulse no bruit, No LAD, Without JVD or thyroid abnormality Respiratory: Clear to auscultation bilaterally, Normal air movement Cardiovascular: Regular rate/rhythm, Normal S1 S2 Gastrointestinal: Normal bowel sounds, No tenderness Musculoskeletal: No tenderness Integumentary: No rashes Neurological: Normal gait, Normal speech, Normal strength at 5/5 x4 extr, Normal tone, Normal affect Lymphatics: No axilla or inguinal lymphadenopathy - Studies Laboratory Data (last 24 hrs) 10/20/19 12:03: PT 13.7 H, INR 1.17 10/20/19 12:03: WBC 11.4 H, Hgb 12.7 L, Hct 38.2 L, Plt Count 147 L 10/20/19 12:03: Sodium 139, Potassium 3.9, BUN 44 H, Creatinine 1.70 H, Glucose 136 H, Magnesium 2.3, Total Bilirubin 0.4, AST 12 L, ALT 18, Alkaline Phosphatase 66, Lipase 29 L Assessment and Plan - Problems (Diagnosis) (1) Adynamic ileus Current Visit: Yes Status: Acute Plan: As stated above he normally has these problems with his bowel. Has been seen in the past by Surgery. However the family wishes a consult. A consult has been placed to Dr. Stevens. I left him a voicemail. In the meantime we can start him on fluids and bowel rest. Will try imodium at first. Would like to avoid the lomotil in his age group. Will follow up in the morning with the patient. (2) Acute on chronic renal failure Current Visit: No Status: Acute Plan: Most likely prerenal. Will start him on gently hydration. Will follow his creatine Qualifiers: Acute renal failure type: unspecified Chronic kidney disease stage: stage 3 (moderate) Qualified Code(s): N17.9 - Acute kidney failure, unspecified; N18.3 - Chronic kidney disease, stage 3 (moderate) (3) HTN (hypertension) Current Visit: No Status: Acute Plan: Will just continue the beta blockers. Will hold the hydralazine for now. Will continue to monitor his bp and follow up. Qualifiers: Discharge Plan: Home Plan to discharge in: 48 Hours - Advance Directives Does patient have a Living Will: No Does patient have a Durable POA for Healthcare: No - Code Status/Comfort Care Code Status Assessed: No Code Status: Full Code Physician Review: Patient Assessed, Agree with Above Assessment and Plan Critical Care: No Time Spent Managing Pts Care (In Minutes): 50
[2019-10-20 16:03] LABS: Urine Blood NEGATIVE (NEG); Urine Glucose NEGATIVE (NEG); Urine Protein NEGATIVE (NEG); Urine Specific Gravity 1.025 (1.005-1.030)
[2019-10-20] MEDS ORDERED: INSULIN -REGULAR HUMAN 50 UNIT/0.5 ML ML SQ SCH (16:30)
--- NOTE | 2019-10-20 16:31 | EKG ---
Test Date: 2019-10-20 Test Time: 12:04:09 Egg Producer: CLARISA MEASUREMENT RESULTS: Intervals: Rate: 106 FL: 232 QRSD: 142 QT: 362 QTc: 480 [place]: P: FL: 232 QRS: 11 T: 63 INTERPRETIVE STATEMENTS: Sinus tachycardia with 1st degree AV block with occasional premature ventricular complexes Right bundle branch block Abnormal ECG Compared to ECG 02/24/2018 17:43:55 Ventricular premature complex(es) now present Sinus rhythm no longer present Electronically Signed On 10-20-19 16:30:08 ELECTRICAL SIGN SERVICER by Maynor Smiley
[2019-10-20] MEDS ORDERED: MORPHINE 2 MG/ML SYR ONE (16:46)
[2019-10-20] MEDS ORDERED: MORPHINE 2 MG/ML SYR IV PRN (17:18)
[2019-10-20] MEDS ORDERED: ACETAMINOPHEN 500 MG TAB PO PRN (17:18)
[2019-10-20] MEDS ORDERED: NA CHLORIDE 0.9% 1,000 ML IV SCH (17:18)
[2019-10-20] MEDS ORDERED: LOPERAMIDE HCL 2 MG CAPSULE PO PRN (17:18)
[2019-10-20 17:34] VITALS: BMI 29.0
[2019-10-20] MEDS: ENOXAPARIN 30 MG/0.3 ML SQ SCH (17:52)
[2019-10-20] MEDS: D5 0.45 NS 1,000 ML IV SCH (17:53)
[2019-10-20] MEDS: carvediloL 3.125 MG TAB PO SCH (20:57)
[2019-10-20] MEDS: CIPROFLOXACIN 400mg IV 400 MG/200 ML BAG IV SCH (20:57)
[2019-10-20] MEDS ORDERED: PNEUMOCOCCAL VACCINE 0.5 ML IMVAC ONE (21:00)
[2019-10-20] MEDS ORDERED: INFLUENZA VACCINE (for 3y+) 0.5 ML DOSE IMVAC ONE (21:00)
[2019-10-21] MEDS: D5 0.45 NS 1,000 ML IV SCH ×2 (05:49→21:09)
[2019-10-21 06:22] LABS: Basophils % 0.5 % (0-1.3); Hematocrit 38.6 % (39.6-49.0); Lymphocytes % 10.6 % (15.3-44.8); MPV 8.3 fL (7.6-11.3); RBC Red Blood Cell Count 3.96 M/uL (4.33-5.43)
[2019-10-21 06:38] LABS: Albumin 2.3 g/dL (3.4-5.0); Bilirubin Direct 0.2 mg/dL (0-0.2); Bilirubin Total 0.5 mg/dL (0.2-1.0); Potassium 4.1 mmol/L (3.5-5.1); Protein, Total 5.4 g/dL (6.4-8.2)
[2019-10-21] MEDS: carvediloL 3.125 MG TAB PO SCH ×2 (08:00→21:03)
[2019-10-21] MEDS: POTASSIUM CL SA 10 MEQ TAB PO SCH (08:22)
[2019-10-21] MEDS: PANTOPRAZOLE 40MG TABLET PO SCH (08:22)
[2019-10-21] MEDS: CIPROFLOXACIN 400mg IV 400 MG/200 ML BAG IV SCH (08:25)
--- NOTE | 2019-10-21 09:14 | P.PN ---
Subjective Date of Service: 10/21/19 Primary Care Provider: Jena Chief Complaint: intractable diarrhea Subjective: Improving Review of Systems 10-point ROS is otherwise unremarkable Gastrointestinal: Abdominal Pain (tolerating full liquid diet) Physical Examination - Vital Signs Temperature: 96.9 F Blood Pressure: 142/73 Pulse: 72 Respirations: 16 Pulse Ox (%): 99 - Physical Exam General: Alert, In no apparent distress HEENT: Atraumatic, PERRLA, EOMI Neck: Supple, JVD not distended Respiratory: Clear to auscultation bilaterally, Normal air movement Cardiovascular: Regular rate/rhythm, Normal S1 S2 Gastrointestinal: Normal bowel sounds, No tenderness Musculoskeletal: No tenderness Integumentary: No rashes Neurological: Normal speech, Normal tone, Normal affect Lymphatics: No axilla or inguinal lymphadenopathy - Studies Laboratory Data (last 24 hrs) 10/20/19 12:03: PT 13.7 H, INR 1.17 10/20/19 12:03: WBC 11.4 H, Hgb 12.7 L, Hct 38.2 L, Plt Count 147 L 10/20/19 12:03: Sodium 139, Potassium 3.9, BUN 44 H, Creatinine 1.70 H, Glucose 136 H, Magnesium 2.3, Total Bilirubin 0.4, AST 12 L, ALT 18, Alkaline Phosphatase 66, Lipase 29 L Assessment And Plan - Current Problems (Diagnosis) (1) Adynamic ileus Current Visit: Yes Status: Acute Plan: As stated above he normally has these problems with his bowel. Has been seen in the past by Surgery. However the family wishes a consult. A consult has been placed to Dr. Stevens. I left him a voicemail. In the meantime we can start him on fluids and bowel rest. Will try imodium at first. Would like to avoid the lomotil in his age group. Will follow up in the morning with the patient. patient is tolerating a full liquid diet. Will advance diet as tolerated. (2) Acute on chronic renal failure Current Visit: No Status: Resolved Plan: Creatine has improved. Not to baseline. Will continue fluids for one more day. Qualifiers: Acute renal failure type: unspecified Chronic kidney disease stage: stage 3 (moderate) Qualified Code(s): N17.9 - Acute kidney failure, unspecified; N18.3 - Chronic kidney disease, stage 3 (moderate) (3) HTN (hypertension) Current Visit: No Status: Acute Plan: Will just continue the beta blockers. Will hold the hydralazine for now. Will continue to monitor his bp and follow up. Qualifiers: (4) Osteoarthritis Current Visit: Yes Status: Acute Plan: Patient is mostly bed bound. Will start him on scheduled tylenol. Will need to D/c the morphine. Which would worsen the constipation. As well as worsening falls and mentation. Will consult PT. However he has not been very compliant with this in the past. Qualifiers: Osteoarthritis location: multiple joints Osteoarthritis type: primary Qualified Code(s): M15.0 - Primary generalized (osteo)arthritis Discharge Plan: Home Plan to discharge in: 24 Hours - Code Status/Comfort Care Code Status Assessed: No Physician Review: Patient Assessed, Agree with Above Assessment and Plan Critical Care: No Time Spent Managing PTS Care (In Minutes): 20
[2019-10-21] MEDS: ACETAMINOPHEN 500 MG TAB PO SCH ×3 (09:47→21:04)
--- NOTE | 2019-10-21 14:37 | CON ---
Date of Consultation: 10/21/2019 Reason For Service: Abdominal pain. History Of Present Illness: This is the case of an 88-year-old patient, who comes to us with history of recurrent abdominal pain. He for the last few months has been like that. Then, he feels better. At this time, he was just riding with his family last Saturday and he vomited several times and then followed with diarrhea, and he was sent to the ER, was admitted with colitis. The patient has appare ntly prior episodes of the same. I talked to the family, which worked in our operating room. Most o f the information is obtained from the daughter. The patient does not recall any hematemesis or any melena. No dysuria, no hematuria, no hematochezia. He does not remember eating anything out of the usual and no family members sick at home, and no recent traveling out of the country. Allergies: NONE. Medications: Reviewed including Flagyl. Social History: He does not smoke. He does not drink alcohol. Family History: Includes hypertension, diabetes. Past Medical History: The patient's history includes CVA, non-insulin dependent, dementia. Past Surgical History: Includes neck surgery. Physical Examination: General: The patient is awake and alert. Feels better now compared with yesterday when he came to [facility] ER. HEENT: Pupils anicteric. Abdomen: Soft and depressible. No guarding or rebound. Mild left lower quadrant tenderness. No gu arding, no rebound, no peritoneal signs. Rectal: Deferred. Extremities: Good capillary refill. Laboratory Data: Blood work shows WBC count of 9.3 coming from 11.4 yesterday, hemoglobin of 13, marcos telets of 187. INR is 1.17, chloride is 108, lipase 49. I reviewed the previous cultures and stool culture last time was ordered in August and ova and parasite at that moment was showing no ova and p arasites. Also, a C difficile was done the last time, but I did not see the report right now here bu t at least the culture shows no salmonella, no shigella, no campylobacter. Assessment: 88-year-old patient, on and off abdominal pain. He has history of peripheral vascular d isease and he has history of CVA. I do not see any pneumatosis on the bowel right now, but obviously when he recovers from this, we are going to ask him to go to colorectal surgeons where they can do t he final workup for him to make sure there is no on and off angina on those intestines. Right now, irene avilez does not have any peritonitis. We are going to give him full liquid diet. Obviously cultures are being sent once again. From the surgical standpoint, at least today, we do not see any surgical inte rvention plan. Dr. Goldman will be covering for him in the next few days. He knows the patient and he has covered him before and continue with the treatment if any. ROSETTA/SONU Voice ID: [id number] Report ID: [id number]
[2019-10-21] MEDS: ENOXAPARIN 30 MG/0.3 ML SQ SCH (16:12)
[2019-10-22] MEDS: ACETAMINOPHEN 500 MG TAB PO SCH ×2 (04:41→11:28)
[2019-10-22] MEDS: PANTOPRAZOLE 40MG TABLET PO SCH ×2 (06:28→07:26)
[2019-10-22] MEDS: POTASSIUM CL SA 10 MEQ TAB PO SCH (07:25)
[2019-10-22] MEDS: D5 0.45 NS 1,000 ML IV SCH (07:25)
[2019-10-22] MEDS: carvediloL 3.125 MG TAB PO SCH (07:26)
[2019-10-22 07:31] VITALS: O2SAT 93
--- NOTE | 2019-10-22 10:16 | P.PN ---
Subjective Date of Service: 10/22/19 Primary Care Provider: Jena Chief Complaint: intractable diarrhea Subjective: Improving solid stools Review of Systems 10-point ROS is otherwise unremarkable Physical Examination - Vital Signs Temperature: 97.5 F Blood Pressure: 185/102 Pulse: 68 Respirations: 16 Pulse Ox (%): 93 - Physical Exam General: Alert, In no apparent distress HEENT: Atraumatic, PERRLA, EOMI Neck: Supple, JVD not distended Respiratory: Clear to auscultation bilaterally, Normal air movement Cardiovascular: Regular rate/rhythm, Normal S1 S2 Gastrointestinal: Normal bowel sounds, No tenderness Musculoskeletal: No tenderness Integumentary: No rashes Neurological: Normal speech, Normal tone, Normal affect Lymphatics: No axilla or inguinal lymphadenopathy - Studies Microbiology Data (last 24 hrs): 10/20/19 13:28 Clean Catch Urine [place] Count - Final >100,000 CFU/ML. 10/20/19 13:28 Clean Catch Urine - Final MIXED PASCUAL. 10/20/19 13:25 Stool Fecal Leukocyte Stain - Final Assessment & Plan - Problems (Diagnosis) (1) Adynamic ileus Current Visit: Yes Status: Acute Plan: As stated above he normally has these problems with his bowel. Has been seen in the past by Surgery. However the family wishes a consult. A consult has been placed to Dr. Stevens. I left him a voicemail. In the meantime we can start him on fluids and bowel rest. Will try imodium at first. Would like to avoid the lomotil in his age group. Will follow up in the morning with the patient. patient is doing very well. He is tolerating a diet, and having solid bowel movement. Per Dr. Stevens's note. No surgical interventions are planned. Have called two of his daughters and discussed this. Spent 10min on the phone with each daughter. (2) HTN (hypertension) Current Visit: No Status: Acute Plan: Will just continue the beta blockers. Will hold the hydralazine for now. Will continue to monitor his bp and follow up. Qualifiers: (3) Osteoarthritis Current Visit: Yes Status: Acute Plan: Patient is mostly bed bound. Will start him on scheduled tylenol. Will need to D/c the morphine. Which would worsen the constipation. As well as worsening falls and mentation. Will consult PT. However he has not been very compliant with this in the past. Qualifiers: Osteoarthritis location: multiple joints Osteoarthritis type: primary Qualified Code(s): M15.0 - Primary generalized (osteo)arthritis Discharge Plan: Home Plan to discharge in: 24 Hours - Code Status/Comfort Care Code Status Assessed: No Physician Review: Patient Assessed, Agree with Above Assessment and Plan Critical Care: No Time Spent Managing Pts Care (In Minutes): 40
--- NOTE | 2019-10-22 10:29 | P.DS ---
Admission Date: 10/20/19 Discharge Date: 10/22/19 Primary Care Provider: Jena Disposition: ROUTINE DISCHARGE Reason for Admission: intractable diarrhea - Problems (1) Adynamic ileus Current Visit: Yes Status: Acute (2) HTN (hypertension) Current Visit: No Status: Acute Qualifiers: (3) Osteoarthritis Current Visit: Yes Status: Acute Qualifiers: Osteoarthritis location: multiple joints Osteoarthritis type: primary Qualified Code(s): M15.0 - Primary generalized (osteo)arthritis Brief History of Present Illness: Patient is well known to me. The patient has a history of bowel problems. He is usually constipated. However he was going for ride with his family this past Saturday. Threw up 3 times. They took him home and he was having diarrhea this time. No family members are having similar symptoms. They were told to come to the ER. He has normal labs. The CT does not show anything alarming. His creatine is elevated at 1.7(His baseline is 0.8-0.9) He still complaint of stomach pain. However her has normal vitals. Otherwise stable. Hospital Course: patient was admitted for diarrhea and acute renal failure. Admitted to the floor. Seen by Dr. Stevens. No need for any intervention. He improved with fluids and bowel rest. started a full liquid diet the next day. Have spoken to the family this morning. Who would like to take him home for Thanksgiving. Will have him follow up in the office in the next few weeks. Vital Signs/Physical Exam: Temp Pulse Resp BP Pulse Ox 97.5 F 68 16 185/102 H 93 10/22/19 10:16 10/22/19 10:16 10/22/19 10:16 10/22/19 10:16 10/22/19 10:16 General: Alert, In no apparent distress HEENT: Atraumatic, PERRLA, EOMI Neck: Supple, JVD not distended Respiratory: Clear to auscultation bilaterally, Normal air movement Cardiovascular: Regular rate/rhythm, Normal S1 S2 Gastrointestinal: Normal bowel sounds, No tenderness Musculoskeletal: No tenderness Integumentary: No rashes Neurological: Normal speech, Normal tone, Normal affect Lymphatics: No axilla or inguinal lymphadenopathy Laboratory Data at Discharge: WBC 9.3 K/uL (4.3-10.9) D 10/21/19 06:03 Hgb 13.0 g/dL (13.6-17.9) L 10/21/19 06:03 Hct 38.6 % (39.6-49.0) L 10/21/19 06:03 Plt Count 147 K/uL (152-406) L 10/21/19 06:03 PT 13.7 SECONDS (9.5-12.5) H 10/20/19 12:03 INR 1.17 10/20/19 12:03 Sodium 137 mmol/L (136-145) 10/21/19 06:03 Potassium 4.1 mmol/L (3.5-5.1) 10/21/19 06:03 BUN 33 mg/dL (7-18) H 10/21/19 06:03 Creatinine 1.24 mg/dL (0.55-1.3) 10/21/19 06:03 Glucose 88 mg/dL (74-106) 10/21/19 06:03 Magnesium 2.3 mg/dL (1.8-2.4) 10/20/19 12:03 Total Bilirubin 0.5 mg/dL (0.2-1.0) 10/21/19 06:03 AST 19 U/L (15-37) 10/21/19 06:03 ALT 17 U/L (12-78) 10/21/19 06:03 Alkaline Phosphatase 66 U/L (45-117) 10/21/19 06:03 Lipase 49 U/L (73-393) L 10/21/19 06:03 Home Medications: Hydralazine HCl [Apresoline] 100 mg PO BID 09/08/19 Labetalol HCl [Trandate] 100 mg PO BID 09/08/19 Loratadine [Claritin] 10 mg PO DAILY 09/08/19 Potassium Oral Tab [Klor-Con 10 mEq Tab] 10 meq PO DAILY 09/08/19 Spironolactone [Aldactone] 25 mg PO DAILY 09/08/19 carvediloL [Coreg] 3.125 mg PO BID 09/08/19 Loperamide [Imodium*] 2 mg PO Q4H PRN #14 cap 10/22/19 New Medications: Loperamide [Imodium*] 2 mg PO Q4H PRN #14 cap PRN Reason: Diarrhea Diet: [place] Activity: Fall precautions Physician Review: Patient Assessed, Agree with Above Assessment and Plan Time spent managing pt's care (in minutes): 45
[2019-10-22] MEDS ORDERED: HYDRALAZINE HCL 20 MG/ML VIAL IV ONE (12:10)
--- NOTE | 2019-10-22 14:58 | PN ---
Date of Progress Note: 10/22/[address] Stevens. Subjective: I know the patient well from his previous admission. He was admitted 2 days ago with di arrhea. Workup revealed colitis. Cultures were done, workup was done, CAT scan was done, and I have reviewed all of the data. Patient currently is awake, alert, tolerating diet. Vital signs are stab le. He is afebrile. He has had 1 bowel movement without difficulty. He does not have leukocytosis anymore, has slight left shift from yesterday's labs and his laboratory data so far is negative. Uri ne is mixed caprice. Objective: Abdomen: He has some tenderness in the right lower quadrant, but no rebound, rigidity, o r guarding. Assessment: Colitis in the sigmoid region, which was present 6 weeks ago. Patient is asymptomatic c urrently. Recommendations: I believe the patient should be seen by GI service if possible for colonoscopy with biopsy and see if other modes of treatment would benefit the patient. We do not have GI service and patient is stable. Agree with discharge of the patient and I will talk to the family regarding foll owup with the GI service as soon as possible as an outpatient. Plan of care was discussed in detail with Dr. Bella. CHANTEL/SONU Voice ID: [id number] Report ID: [id number]
[2019-10-22 16:29] VITALS: BP 170/90; TEMP 97.1
== END 2019-10-22 17:10 | disposition home or self-care (01) | DRG 389 ==
LOC: ER 11:25 → ERHOLD 13:41 → 4TH 17:02
PROVIDERS: ADMIT Internal Medicine; ATTEND Internal Medicine
DX: K56.0 Paralytic ileus (principal); I69.351 Hemiplegia and hemiparesis following cerebral infarction affecting right dominant side; N17.9 Acute kidney failure, unspecified; I12.9 Hypertensive chronic kidney disease with stage 1 through stage 4 chronic kidney disease, or unspecified chronic kidney disease; N18.3 Chronic kidney disease, stage 3 (moderate); M15.0 Primary generalized (osteo)arthritis; I73.9 Peripheral vascular disease, unspecified
CPT/HCPCS: 36415; 71045; 74019; 74176; 80048; 80076; 81003; 82947; 83690; 83735; 83880; 84484; 85025; 85610; 87045; 87046; 87086; 87088; 89055; 93005; 96361; 96365; 96367; 96375; 99285; J0360; J0744; J1650; J2270; J2405; J7030; J7799